=== PATIENT | female | born 1975 | race Caucasian/White ===

== ENCOUNTER 2019-12-02 12:35 | Inpatient (IN) | payer OTHER ==
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
--- NOTE | 2019-12-02 15:03 | HP ---
CIWA Score Nausea/Vomitin Muscle Tremors: 3 Anxiety: 1-Mildly Anxious Agitation: 1-Slight > Activity Paroxysmal Sweats: No Perspiration Orientation: 0-Oriented Tacttile Disturbances: 0-None Auditory Disturbances: 0-None Visual Disturbances: 2-Mild Sensitivity Headache: 0-None Present CIWA-Ar Total Score: 10 - Admission Criteria OASAS Guidelines: Admission for Medically Managed Detox: Requires at least one of the followin. CIWA greater than 12 2. Seizures within the past 24 hours 3. Delirium tremens within the past 24 hours 4. Hallucinations within the past 24 hours 5. Acute intervention needed for co occurring medical disorder 6. Acute intervention needed for co occurring psychiatric disorder 7. Severe withdrawal that cannot be handled at a lower level of care (continued vomiting, continued diarrhea, abnormal vital signs) requiring intravenous medication and/or fluids 8. Admitting History and Physical - Admission History of Present Illness: Patient presents to [facility] requesting for detox from alcohol PMH:HTN. Pt says he has PRN lasix, spironolactone. Neuropathy under investigation for ? herniated disc following cervical trauma PSH: Apendisectomy PSYCH: Depression, anxiety, bipolar on seroquel SOC/DOMICILED: [facility] LEGAL: None Substance Use & Tx History - Substance Use History Alcohol Substance amount: 1-2 pints of a mixer: [place] Iced tea Frequency of use: Daily Substance route: Oral Date of Last Use: 12/01/19 (First use age 24 y. ? seizure yesterday. No blackouts. 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: Peripheral Neuropathy (under investigation for suspected cervical disc) Hepatobiliary: Yes: Cirrhosis ...LMP: 11/20/19 (lasted 2 weeks with clots) ...: No Heme/Onc: Yes: Other (MGUS, being managed by construction trades contractor) Psych: Yes: Anxiety, Bipolar, Depression Additional Past Medical History: Patient is also being managed for MGUS and neuropathy be a 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 Patient complained of menorrhagia and has been advisd to [facility] primary care provider) Hematology: reports: Other (currently being managed for MGUS by construction trades contractor. Encouraged to continue follow-up) Patient History - Smoking Cessation Smoking history: Current every day smoker Have you smoked in the past 12 months: Yes Aproximately how many cigarettes per day: 10 Cigars Per Day: 12 Hx Chewing Tobacco Use: No Initiated information on smoking cessation: Yes 'Breaking Loose' booklet given: 12/02/19 Admission Physical Exam [facility] - Physical General Appearance: Yes: Within Normal Limits, No Apparent Distress, Nourished, Appropriately Dressed HEENTM: Yes: Within Normal Limits, EOMI, Hearing grossly Normal, Normocephalic, Normal Voice, JAME Respiratory: Yes: Within Normal Limits, Chest Non-Tender, Lungs Clear, Normal Breath Sounds, No Respiratory Distress, No Accessory Muscle Use Neck: Yes: Within Normal Limits, No masses,lesions,Nodules Breast: Yes: Breast Exam Deferred Cardiology: Yes: Within Normal Limits, Regular Rhythm, Regular Rate, S1, S2 Abdominal: Yes: Within Normal Limits, Normal Bowel Sounds, Non Tender, Flat, Soft Genitourinary: Yes: Other Back: Yes: Within Normal Limits, Normal Inspection Musculoskeletal: Yes: Within Normal Limits, full range of Motion Extremities: Yes: Normal Capillary Refill, Normal Inspection, Other (tenderness b/l legs) Neurological: Yes: Within Normal Limits, Fully Oriented, Alert Integumentary: Yes: Within Normal Limits, Normal Color - Diagnostic (1) Hypertension Current Visit: Yes Status: Acute (2) Numbness and tingling of both lower extremities Current Visit: Yes Status: Chronic (3) Numbness and tingling of both upper extremities Current Visit: Yes Status: Chronic (4) Depression Current Visit: Yes Status: Chronic (5) Anxiety Current Visit: Yes Status: Acute (6) Bipolar 1 disorder Current Visit: Yes Status: Chronic Cleared for Admission S - Detox or Rehab [facility] Level of Care: Medically Managed Screened but not Admitted - Documentation of Visit Screened but not Admitted: No Breathalyzer - Breathalyzer Breathalyzer: 0.050 Urine Drug Screen - Test Device Lot number: [id number] Expiration date: 01/09/21 - Control Is test valid?: Yes - Results Drug screen NEGATIVE: No Urine drug screen results: THC-Marijuana, BZO-Benzodiazepines Inpatient Rehab Admission - Rehab Decision to Admit Inpatient rehab admission?: No
[2019-12-02] MEDS ORDERED: ACETAMINOPHEN 325 MG TABLET (FP) PO PRN ×2 (15:35)
[2019-12-02] MEDS ORDERED: chlordiazePOXIDE HCL 25 MG CAPSULE PO PRN ×2 (15:35)
[2019-12-02] MEDS ORDERED: MAGNESIUM CITRATE 300 ML BOTTLE PO PRN (15:35)
[2019-12-02] MEDS ORDERED: BISMUTH SUBSALICYLATE 524 MG/30 ML UD PO PRN (15:35)
[2019-12-02] MEDS ORDERED: METHOCARBAMOL 500 MG TABLET PO PRN (15:35)
[2019-12-02] MEDS ORDERED: MAG HYDROX/AL HYDROX/SIMETH 30 ML UNIT-DOSE CUP PO PRN (15:35)
[2019-12-02] MEDS ORDERED: MAGNESIUM HYDROX 2400MG/30ML ORAL SUSPENSION 30 ML CUP PO PRN (15:35)
[2019-12-02] MEDS ORDERED: NICOTINE POLACRILEX 2 MG GUM BUC PRN (15:35)
[2019-12-02] MEDS ORDERED: MENTHOL/PHENOL 1 EACH UD MM PRN (15:35)
[2019-12-02] MEDS ORDERED: IBUPROFEN 400 MG TABLET (FP) PO PRN (15:35)
[2019-12-02 16:45] VITALS: BMI 26.4
[2019-12-02] MEDS ORDERED: chlordiazePOXIDE HCL 25 MG CAPSULE PO SCH (17:00)
[2019-12-02] MEDS: NICOTINE 14 MG/24 HOURS TOPICAL PATCH TD SCH (18:11)
[2019-12-02] MEDS: hydrOXYzine PAMOATE 25 MG CAPSULE (FP) PO SCH ×2 (18:11→22:21)
[2019-12-02] MEDS: PRENATAL VITAMINS W/ FOLIC ACID TABLET (FP) PO SCH (18:11)
[2019-12-02] MEDS: ONDANSETRON *ODT* 4 MG TABLET SL PRN (21:14)
[2019-12-02] MEDS ORDERED: MELATONIN 5 MG TABLETS PO SCH (22:00)
[2019-12-02] MEDS ORDERED: THIAMINE HCL 100 MG TABLET (FP) PO SCH (22:00)
[2019-12-02] MEDS: chlordiazePOXIDE HCL 25 MG CAPSULE PO SCH (22:20)
[2019-12-03] MEDS: chlordiazePOXIDE HCL 25 MG CAPSULE PO SCH ×2 (06:14→10:41)
[2019-12-03] MEDS: hydrOXYzine PAMOATE 25 MG CAPSULE (FP) PO SCH ×4 (06:15→18:52)
[2019-12-03 10:23] LABS: HEMATOCRIT 37.3 % (32.4-45.2); HEMOGLOBIN 12.4 GM/dL (10.7-15.3); MCH 37.1 pg (25.7-33.7); MCHC 33.2 g/dl (32.0-36.0); MEAN CELL VOLUME 111.6 fl (80-96); MEAN PLT VOLUME 11.2 fl (7.5-11.1); PLATELET COUNT 234 K/MM3 (134-434); RBC 3.34 M/mm3 (3.60-5.2); RDW 18.2 % (11.6-15.6); WHITE BLOOD COUNT 8.9 K/mm3 (4.0-10.0)
[2019-12-03 10:37] LABS: ALBUMIN 3.3 g/dl (3.4-5.0); BLOOD UREA NITROGEN 5.2 mg/dL (7-18); CALCIUM 8.9 mg/dL (8.5-10.1); CREATININE 0.8 mg/dL (0.55-1.3); POTASSIUM 3.9 mmol/L (3.5-5.1)
[2019-12-03 10:39] LABS: BILIRUBIN,TOTAL 1.3 mg/dL (0.2-1); TOT PROT 8.3 g/dl (6.4-8.2)
[2019-12-03] MEDS: PRENATAL VITAMINS W/ FOLIC ACID TABLET (FP) PO SCH (10:41)
[2019-12-03] MEDS: NICOTINE 14 MG/24 HOURS TOPICAL PATCH TD SCH (10:41)
--- NOTE | 2019-12-03 10:58 | PN ---
S CIWA - CIWA Score Nausea/Vomitin-Mild Nausea/No Vomiting Muscle Tremors: 2 Anxiety: 0-No Anxiety, at Ease Agitation: 0-Normal Activity Paroxysmal Sweats: 1-Minimal Palms Moist Orientation: 1-Uncertain about Date Tacttile Disturbances: 0-None Auditory Disturbances: 0-None Visual Disturbances: 1-Very Mild Sensitivity Headache: 0-None Present CIWA-Ar Total Score: 6 BHS Progress Note (SOAP) Subjective: Pt complains of slight nausea, tremor, sweats, light sensitivity Objective: 12/03/19 11:01 PE Gnl: WDWN, in bed MS: nl mentation Motor: moves limbs well Coordination: nl Laboratory Tests 12/03/19 12/03/19 08:15 08:15 WBC 8.9 RBC 3.34 L Hgb 12.4 Hct 37.3 MCV 111.6 H MCH 37.1 H MCHC 33.2 RDW 18.2 H Plt Count 234 MPV 11.2 H Sodium 142 Potassium 3.9 Chloride 107 Carbon Dioxide 26 Anion Gap 9 BUN 5.2 L Creatinine 0.8 Est GFR (CKD-EPI)AfAm 103.19 Est GFR (CKD-EPI)NonAf 89.04 Random Glucose 132 H Calcium 8.9 Total Bilirubin 1.3 H AST 114 H ALT 53 Alkaline Phosphatase 127 H Total Protein 8.3 H Albumin 3.3 L Home Medication List Medication Instructions Recorded Confirmed Type Buspirone HCl [Buspar -] 10 mg PO DAILY 12/02/19 12/02/19 History Gabapentin 300 mg PO BID 12/02/19 12/02/19 History Pregabalin [Lyrica] 100 mg PO DAILY 12/02/19 12/02/19 History Quetiapine Fumarate [Seroquel -] 50 mg PO HS 12/02/19 12/02/19 History traZODone HCL [Trazodone HCl] 100 mg PO HS 12/02/19 12/02/19 History Active Medications Generic Name Dose Route Start Last Admin Trade Name Freq PRN Reason Stop Dose Admin Acetaminophen 650 mg 12/02/19 15:35 Tylenol - PO Q6H PRN FEVER Al Hydroxide/Mg Hydroxide 30 ml 12/02/19 15:35 Mylanta Oral Suspension - PO Q6H PRN DYSPEPSIA Bismuth Subsalicylate 524 mg 12/02/19 15:35 Pepto-Bismol - PO Q1H PRN DIARRHEA Chlordiazepoxide HCl 50 mg 12/02/19 23:00 12/03/19 10:41 Librium - PO 12/03/19 23:01 50 mg [id number] MARLEEN Administration Chlordiazepoxide HCl 25 mg 12/04/19 05:00 Librium - PO 12/04/19 23:01 [id number] MARLEEN Chlordiazepoxide HCl 25 mg 12/02/19 15:35 12/02/19 18:11 Librium - PO 12/04/19 23:59 25 mg Q4H PRN Administration WITHDRAWAL(CONT SUBST) Chlordiazepoxide HCl 10 mg 12/05/19 05:00 Librium - PO 12/05/19 23:01 [id number] MARLEEN Chlordiazepoxide HCl 10 mg 12/06/19 05:00 Librium - PO 12/06/19 17:01 Q12H MARLEEN Chlordiazepoxide HCl 10 mg 12/05/19 00:00 Librium - PO 12/06/19 00:00 Q4H PRN WITHDRAWAL(CONT SUBST) Chlordiazepoxide HCl 10 mg 12/07/19 05:00 Librium - PO 12/07/19 05:01 ONCE@0500 ONE Eucalyptus/Menthol/Phenol/Sorbitol 1 each 12/02/19 15:35 Cepastat Lozenge - MM 12/08/19 15:35 Q4H PRN SORE THROAT Hydroxyzine Pamoate 25 mg 12/02/19 18:00 12/03/19 10:41 Vistaril - PO 12/08/19 15:35 25 mg Q4HWA MARLEEN Administration Ibuprofen 400 mg 12/02/19 15:35 12/02/19 20:45 Motrin - PO 400 mg Q6H PRN Administration PAIN LEVEL 1 - 3 Magnesium Citrate 300 ml 12/02/19 15:35 Citroma - PO Q48H PRN CONSTIPATION Magnesium Hydroxide 30 ml 12/02/19 15:35 Milk Of Magnesia - PO PRN PRN CONSTIPATION Melatonin 5 mg 12/02/19 22:00 12/02/19 22:21 Melatonin PO 5 mg HS MARLEEN Administration Methocarbamol 500 mg 12/02/19 15:35 12/02/19 20:45 Robaxin - PO 12/08/19 15:35 500 mg Q6H PRN Administration MUSCLE SPASMS Nicotine 14 mg 12/02/19 15:45 12/03/19 10:41 Nicoderm Patch - TD Not Given DAILY MARLEEN Nicotine Polacrilex 2 mg 12/02/19 15:35 Nicorette Gum - BUC Q2H PRN NICOTINE REPLACEMENT RX Ondansetron HCl 4 mg 12/02/19 15:45 12/02/19 21:14 Zofran Odt - SL 4 mg Q8H PRN Administration NAUSEA Multivit/Folic Acid/Iron 1 tab 12/02/19 16:45 12/03/19 10:41 Vitamins (Sjr) - PO 1 tab DAILY MARLEEN Administration Thiamine HCl 100 mg 12/02/19 22:00 12/02/19 22:21 Vitamin B1 - PO 100 mg HS MARLEEN Administration Vital Signs Temperature 97.8 F 12/03/19 08:55 Pulse Rate 86 12/03/19 08:55 Respiratory Rate 18 12/03/19 08:55 Blood Pressure 108/73 12/03/19 08:55 O2 Sat by Pulse Oximetry (%) 95 12/03/19 08:55 Assessment: 12/03/19 10:58 Patient presents to [facility] requesting for detox from alcohol PMH:HTN. Pt says he has PRN lasix, spironolactone. Neuropathy under investigation for ? herniated disc following cervical trauma PSH: Apendisectomy PSYCH: Depression, anxiety, bipolar on seroquel SOC/DOMICILED: [facility] LEGAL: None Substance Use & Tx History - Substance Use History Alcohol Substance amount: 1-2 pints of a mixer: [place] Iced tea Frequency of use: Daily Substance route: Oral Date of Last Use: 12/01/19 (First use age 24 y. ? seizure yesterday. No blackouts. 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 Alcohol use disorder 2. Nicotine dependence Plan: 1. Librium protocol, projected completion 12/05 2. COVID pending
--- NOTE | 2019-12-03 11:20 | EKG ---
Test Reason : Blood Pressure : / mmHG Vent. Rate : 083 BPM Atrial Rate : 083 BPM P-R Int : 130 ms QRS Dur : 072 ms QT Int : 386 ms P-R-T Axes : 074 029 053 degrees QTc Int : 453 ms NORMAL SINUS RHYTHM NORMAL ECG NO PREVIOUS ECGS AVAILABLE Confirmed by GREGOR MORENO MD ([id number]) on 12/03/2019 11:20:09 AM Referred By: Confirmed By:GREGOR MORENO MD
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
--- NOTE | 2019-12-03 13:54 | PN ---
Teaching Attending Note Name of Resident: Farooq Aldridge ATTENDING PHYSICIAN STATEMENT I saw and evaluated the patient. I reviewed the resident's note and discussed the case with the resident. I agree with the resident's findings and plan as documented. SUBJECTIVE: I agree with resident's subjective findings OBJECTIVE: I agree with resident's objective findings ASSESSMENT AND PLAN: I agree with resident's plans for detox.
[2019-12-03] MEDS: ONDANSETRON *ODT* 4 MG TABLET SL PRN (14:13)
[2019-12-03] MEDS ORDERED: chlordiazePOXIDE HCL 25 MG CAPSULE PO SCH (17:00)
[2019-12-03 17:08] VITALS: BP 116/82; PULSE 75; TEMP 97.3
--- NOTE | 2019-12-03 19:54 | DS ---
[facility] Detox Discharge Summary Admission Date: 12/02/19 Discharge Date: 12/03/19 - History Present History: Alcohol Dependence Additional Comments: Patient left before the provider could see/evaluate her. Pertinent Past History: History of HTN,Appendectomy, anxiety, depression, Bipolar, Alcohol and Nicotine use disorder. - Physical Exam Results Vital Signs: Vital Signs Temperature 97.3 F L 12/03/19 16:52 Pulse Rate 75 12/03/19 16:52 Respiratory Rate 18 12/03/19 16:52 Blood Pressure 116/82 12/03/19 16:52 O2 Sat by Pulse Oximetry (%) 97 12/03/19 14:06 Vital Signs 12/03/19 12/03/19 14:06 16:52 Temperature 97.1 F L 97.3 F L Pulse Rate 100 H 75 Respiratory 18 18 Rate Blood Pressure 123/90 116/82 O2 Sat by Pulse 95 Oximetry (%) Laboratory Last Values WBC 8.9 K/mm3 (4.0-10.0) 12/03/19 08:15 RBC 3.34 M/mm3 (3.60-5.2) L 12/03/19 08:15 Hgb 12.4 GM/dL (10.7-15.3) 12/03/19 08:15 Hct 37.3 % (32.4-45.2) 12/03/19 08:15 MCV 111.6 fl (80-96) H 12/03/19 08:15 MCH 37.1 pg (25.7-33.7) H 12/03/19 08:15 MCHC 33.2 g/dl (32.0-36.0) 12/03/19 08:15 RDW 18.2 % (11.6-15.6) H 12/03/19 08:15 Plt Count 234 K/MM3 (134-434) 12/03/19 08:15 MPV 11.2 fl (7.5-11.1) H 12/03/19 08:15 Sodium 142 mmol/L (136-145) 12/03/19 08:15 Potassium 3.9 mmol/L (3.5-5.1) 12/03/19 08:15 Chloride 107 mmol/L (98-107) 12/03/19 08:15 Carbon Dioxide 26 mmol/L (21-32) 12/03/19 08:15 Anion Gap 9 MMOL/L (8-16) 12/03/19 08:15 BUN 5.2 mg/dL (7-18) L 12/03/19 08:15 Creatinine 0.8 mg/dL (0.55-1.3) 12/03/19 08:15 Est GFR (CKD-EPI)AfAm 103.19 12/03/19 08:15 Est GFR (CKD-EPI)NonAf 89.04 12/03/19 08:15 Random Glucose 132 mg/dL (74-106) H 12/03/19 08:15 Calcium 8.9 mg/dL (8.5-10.1) 12/03/19 08:15 Total Bilirubin 1.3 mg/dL (0.2-1) H 12/03/19 08:15 AST 114 U/L (15-37) H 12/03/19 08:15 ALT 53 U/L (13-61) 12/03/19 08:15 Alkaline Phosphatase 127 U/L (45-117) H 12/03/19 08:15 Total Protein 8.3 g/dl (6.4-8.2) H 12/03/19 08:15 Albumin 3.3 g/dl (3.4-5.0) L 12/03/19 08:15 Syphilis Serology Non-reactive (NONREACTIVE) 12/03/19 08:20 COVID-19 (MICHAELA) Not detected (Not Detected) 12/02/19 19:00 Labs noted. Pertinent Admission Physical Exam Findings: Withdrawal symptoms - Medication Discharge Medications: Ambulatory Orders Buspirone HCl [Buspar -] 10 mg PO DAILY 12/02/19 Gabapentin 300 mg PO BID 12/02/19 Pregabalin [Lyrica] 100 mg PO DAILY 12/02/19 Quetiapine Fumarate [Seroquel -] 50 mg PO HS 12/02/19 traZODone HCL [Trazodone HCl] 100 mg PO HS 12/02/19 - Diagnosis (1) Anxiety Current Visit: Yes Status: Chronic (2) Hypertension Current Visit: Yes Status: Chronic (3) Alcohol use disorder Current Visit: Yes Status: Acute (4) Insomnia Current Visit: Yes Status: Chronic - AMA Did Patient Leave Against Medical Advice: Yes
[2019-12-03] MEDS ORDERED: busPIRone HCL 5 MG TABLET PO SCH (22:00)
[2019-12-03] MEDS ORDERED: QUEtiapine FUMARATE 50 MG TABLET PO SCH (22:00)
[2019-12-03] MEDS ORDERED: traZODone HCL 50 MG TABLET (FP) PO SCH (22:00)
[2019-12-04] MEDS ORDERED: chlordiazePOXIDE HCL 25 MG CAPSULE PO SCH ×3 (05:00)
[2019-12-05] MEDS ORDERED: chlordiazePOXIDE HCL 10 MG CAPSULE PO PRN ×3
[2019-12-05] MEDS ORDERED: chlordiazePOXIDE HCL 10 MG CAPSULE PO SCH ×3 (05:00)
[2019-12-06] MEDS ORDERED: chlordiazePOXIDE HCL 10 MG CAPSULE PO SCH ×3 (05:00)
[2019-12-07] MEDS ORDERED: chlordiazePOXIDE HCL 10 MG CAPSULE PO ONE ×3 (05:00)
== END 2019-12-03 19:10 | disposition left against medical advice (07) | DRG 770 ==
LOC: YASAS 12:35 → Y6N 15:14 → Y3N 15:28
PROVIDERS: ADMIT Allergy & Immunology; ATTEND Allergy & Immunology
PROC: HZ2ZZZZ Detoxification Services for Substance Abuse Treatment (ICD-10-PCS; principal; 2019-12-02)
DX: F10.230 Alcohol dependence with withdrawal, uncomplicated (principal); F17.210 Nicotine dependence, cigarettes, uncomplicated; F31.9 Bipolar disorder, unspecified; F40.8 Other phobic anxiety disorders; F19.24 Other psychoactive substance dependence with psychoactive substance-induced mood disorder; D47.2 Monoclonal gammopathy; I10 Essential (primary) hypertension; K74.60 Unspecified cirrhosis of liver; G62.9 Polyneuropathy, unspecified; G47.00 Insomnia, unspecified; R20.0 Anesthesia of skin; Z90.49 Acquired absence of other specified parts of digestive tract; Z56.0 Unemployment, unspecified
CPT/HCPCS: 36415; 80053; 85027; 86780; 93005; 93010; Q0162; U0003

== ENCOUNTER 2021-12-31 17:16 | Inpatient (IN) | payer OTHER ==
[2021-12-31 18:43] VITALS: BMI 25.0
[2021-12-31] MEDS ORDERED: METHOCARBAMOL 500 MG TABLET PO PRN (20:00)
[2021-12-31] MEDS ORDERED: IBUPROFEN 400 MG TABLET (FP) PO PRN (20:00)
[2021-12-31] MEDS ORDERED: ACETAMINOPHEN 325 MG TABLET (FP) PO PRN ×2 (20:00)
[2021-12-31] MEDS ORDERED: NICOTINE POLACRILEX 2 MG GUM BUC PRN (20:00)
[2021-12-31] MEDS ORDERED: LOPERAMIDE HCL 2 MG CAPSULE PO PRN (20:00)
[2021-12-31] MEDS ORDERED: DICYCLOMINE HCL 10 MG CAPSULE PO PRN (20:00)
[2021-12-31] MEDS ORDERED: BISMUTH SUBSALICYLATE 524 MG/30 ML PO PRN (20:00)
[2021-12-31] MEDS ORDERED: MAGNESIUM CITRATE 300 ML BOTTLE PO PRN (20:00)
[2021-12-31] MEDS ORDERED: MAGNESIUM HYDROX 2400MG/30ML ORAL SUSPENSION 30 ML CUP PO PRN (20:00)
[2021-12-31] MEDS ORDERED: BENZOCAINE/MENTHOL (CHLORASEPTIC ) LOZENGE MM PRN (20:00)
[2021-12-31] MEDS ORDERED: ONDANSETRON *ODT* 4 MG TABLET ONE (20:40)
[2021-12-31] MEDS: ONDANSETRON *ODT* 4 MG TABLET SL PRN (20:42)
[2021-12-31] MEDS: LORazepam 1 MG TABLET PO PRN (21:10)
[2021-12-31] MEDS: LORazepam 2 MG TABLET PO SCH ×2 (21:13→22:53)
[2021-12-31] MEDS: THIAMINE HCL 100 MG TABLET (FP) PO SCH (22:53)
[2021-12-31] MEDS: MELATONIN 5 MG TABLETS PO SCH (22:53)
[2022-01-01] MEDS: LORazepam 2 MG TABLET PO SCH ×4 (06:16→22:38)
[2022-01-01] MEDS: NICOTINE 14 MG/24 HOURS TOPICAL PATCH TD SCH (10:14)
[2022-01-01] MEDS: PRENATAL VITAMINS W/ FOLIC ACID TABLET (FP) PO SCH (10:14)
[2022-01-01 10:56] LABS: HEMOGLOBIN 12.3 GM/dL (10.7-15.3); MCH 32.3 pg (25.7-33.7); MCHC 32.5 g/dl (32.0-36.0); MEAN CELL VOLUME 99.5 fl (80-96); PLATELET COUNT 264 10^3/uL (134-434); RBC 3.82 M/mm3 (3.60-5.2); RDW 19.4 % (11.6-15.6); WHITE BLOOD COUNT 6.4 K/mm3 (4.0-10.0)
[2022-01-01 11:10] LABS: ALBUMIN 3.1 g/dl (3.4-5.0); BLOOD UREA NITROGEN 6.3 mg/dL (7-18); CALCIUM 8.8 mg/dL (8.5-10.1)
[2022-01-01 11:13] LABS: CREATININE 0.7 mg/dL (0.55-1.3)
[2022-01-01 11:15] LABS: BILIRUBIN,TOTAL 0.9 mg/dL (0.2-1); TOT PROT 6.6 g/dl (6.4-8.2)
[2022-01-01] MEDS: LORazepam 1 MG TABLET PO PRN (13:10)
[2022-01-01] MEDS: ONDANSETRON *ODT* 4 MG TABLET SL PRN (13:10)
[2022-01-01] MEDS: GABAPENTIN 300 MG CAPSULE PO SCH ×2 (13:34→22:37)
[2022-01-01] MEDS: MAG HYDROX/AL HYDROX/SIMETH 30 ML UNIT-DOSE CUP PO PRN (17:55)
[2022-01-01] MEDS: IBUPROFEN 600 MG TABLET (FP) PO PRN (17:55)
[2022-01-01] MEDS: FAMOTIDINE 20 MG TABLET PO SCH (19:03)
[2022-01-01] MEDS: MELATONIN 5 MG TABLETS PO SCH (22:38)
[2022-01-01] MEDS: THIAMINE HCL 100 MG TABLET (FP) PO SCH (22:38)
[2022-01-02] MEDS: LORazepam 1 MG TABLET PO SCH ×3 (06:23→18:02)
[2022-01-02] MEDS: GABAPENTIN 300 MG CAPSULE PO SCH ×3 (06:24→22:10)
[2022-01-02] MEDS: PRENATAL VITAMINS W/ FOLIC ACID TABLET (FP) PO SCH (10:22)
[2022-01-02] MEDS: FAMOTIDINE 20 MG TABLET PO SCH (10:22)
[2022-01-02] MEDS: NICOTINE 14 MG/24 HOURS TOPICAL PATCH TD SCH (10:22)
[2022-01-02] MEDS: LORazepam 1 MG TABLET PO PRN (14:06)
[2022-01-02] MEDS: IBUPROFEN 600 MG TABLET (FP) PO PRN (14:08)
[2022-01-02] MEDS: MAG HYDROX/AL HYDROX/SIMETH 30 ML UNIT-DOSE CUP PO PRN (18:20)
[2022-01-02] MEDS: MELATONIN 5 MG TABLETS PO SCH (22:10)
[2022-01-02] MEDS: THIAMINE HCL 100 MG TABLET (FP) PO SCH (22:12)
[2022-01-03] MEDS ORDERED: LORazepam 0.5 MG TABLET PO PRN
[2022-01-03] MEDS: LORazepam 1 MG TABLET PO SCH (00:18)
[2022-01-03] MEDS: IBUPROFEN 600 MG TABLET (FP) PO PRN ×2 (05:56→17:31)
[2022-01-03] MEDS: GABAPENTIN 300 MG CAPSULE PO SCH ×2 (05:57→14:03)
[2022-01-03] MEDS: LORazepam 0.5 MG TABLET PO SCH ×3 (05:57→17:31)
[2022-01-03] MEDS: NICOTINE 14 MG/24 HOURS TOPICAL PATCH TD SCH (10:18)
[2022-01-03] MEDS: PRENATAL VITAMINS W/ FOLIC ACID TABLET (FP) PO SCH (10:18)
[2022-01-03] MEDS: FAMOTIDINE 20 MG TABLET PO SCH (10:18)
[2022-01-03 13:10] VITALS: RESP 18
[2022-01-03 18:08] VITALS: BP 144/85; PULSE 71; TEMP 97.5
[2022-01-04] MEDS ORDERED: LORazepam 0.5 MG TABLET PO ONE (05:00)
== END 2022-01-03 19:30 | disposition home or self-care (01) | DRG 775 ==
LOC: YASAS 17:16 → Y3N 20:17
PROVIDERS: ADMIT Allergy & Immunology; ATTEND Surgery
PROC: HZ2ZZZZ Detoxification Services for Substance Abuse Treatment (ICD-10-PCS; principal; 2021-12-31)
DX: F10.230 Alcohol dependence with withdrawal, uncomplicated (principal); F13.20 Sedative, hypnotic or anxiolytic dependence, uncomplicated; F12.20 Cannabis dependence, uncomplicated; F17.210 Nicotine dependence, cigarettes, uncomplicated; F19.24 Other psychoactive substance dependence with psychoactive substance-induced mood disorder; F31.9 Bipolar disorder, unspecified; F41.9 Anxiety disorder, unspecified; G62.9 Polyneuropathy, unspecified; I10 Essential (primary) hypertension; K21.9 Gastro-esophageal reflux disease without esophagitis; K74.60 Unspecified cirrhosis of liver; R73.03 Prediabetes
CPT/HCPCS: 36415; 80053; 81025; 82962; 85027; 86780; 93005; 93010; C9803-CS; Q0162; U0003; U0005

== ENCOUNTER 2022-05-16 11:04 | Inpatient (IN) | payer OTHER ==
[2022-05-16 13:37] VITALS: BMI 24.5
[2022-05-16] MEDS ORDERED: NICOTINE POLACRILEX 4 MG GUM BUC PRN (14:06)
[2022-05-16] MEDS ORDERED: DICYCLOMINE HCL 10 MG CAPSULE PO PRN (14:06)
[2022-05-16] MEDS ORDERED: IBUPROFEN 400 MG TABLET (FP) PO PRN (14:06)
[2022-05-16] MEDS ORDERED: LOPERAMIDE HCL 2 MG CAPSULE PO PRN (14:06)
[2022-05-16] MEDS ORDERED: MAG HYDROX/AL HYDROX/SIMETH 30 ML UNIT-DOSE CUP PO PRN (14:06)
[2022-05-16] MEDS ORDERED: BENZOCAINE/MENTHOL (CHLORASEPTIC ) LOZENGE MM PRN (14:06)
[2022-05-16] MEDS ORDERED: ONDANSETRON *ODT* 4 MG TABLET SL ONE (14:06)
[2022-05-16] MEDS ORDERED: MAGNESIUM HYDROX 2400MG/30ML ORAL SUSPENSION 30 ML CUP PO PRN (14:06)
[2022-05-16] MEDS ORDERED: POLYETHYLENE GLYCOL (HEALTHYLAX) 3350 17 GM PACKET PO PRN (14:06)
[2022-05-16] MEDS ORDERED: BISMUTH SUBSALICYLATE 262 MG/15 ML BTL PO PRN (14:06)
[2022-05-16] MEDS ORDERED: METHOCARBAMOL 500 MG TABLET PO PRN (14:06)
[2022-05-16] MEDS ORDERED: SIMETHICONE 80 MG TAB.CHEW (FP) PO PRN (14:49)
[2022-05-16] MEDS ORDERED: ONDANSETRON *ODT* 4 MG TABLET ONE (15:36)
[2022-05-16] MEDS ORDERED: LORazepam 1 MG TABLET ONE (15:37)
[2022-05-16] MEDS: LORazepam 1 MG TABLET PO PRN (15:40)
[2022-05-16 17:29] LABS: HEMATOCRIT 38.5 % (32.4-45.2); HEMOGLOBIN 12.9 GM/dL (10.7-15.3); MCH 34.5 pg (25.7-33.7); MCHC 33.5 g/dl (32.0-36.0); MEAN PLT VOLUME 8.9 fl (7.5-11.1); PLATELET COUNT 263 10^3/uL (134-434); RBC 3.74 M/mm3 (3.60-5.2); RDW 20.3 % (11.6-15.6)
[2022-05-16] MEDS: NICOTINE 14 MG/24 HOURS TOPICAL PATCH TD SCH (17:31)
[2022-05-16] MEDS: LORazepam 2 MG TABLET PO SCH ×2 (17:31→22:19)
[2022-05-16] MEDS: IBUPROFEN 400 MG TABLET (FP) PO PRN (17:35)
[2022-05-16 17:39] LABS: CALCIUM 8.9 mg/dL (8.5-10.1)
[2022-05-16 17:40] LABS: ALBUMIN 3.5 g/dl (3.4-5.0); BLOOD UREA NITROGEN 5.8 mg/dL (7-18)
[2022-05-16 17:43] LABS: CREATININE 0.7 mg/dL (0.55-1.3)
[2022-05-16 17:45] LABS: BILIRUBIN,TOTAL 0.4 mg/dL (0.2-1); TOT PROT 7.6 g/dl (6.4-8.2)
[2022-05-16] MEDS: ATORVASTATIN CA 10 MG TABLET (FP) PO SCH (22:17)
[2022-05-16] MEDS: THIAMINE HCL 100 MG TABLET (FP) PO SCH (22:17)
[2022-05-16] MEDS: MELATONIN 5 MG TABLETS PO SCH (22:17)
[2022-05-16] MEDS: METHYL SALICYLATE/MENTHOL OINT 30 GM TUBE TP SCH (22:18)
[2022-05-16] MEDS: GABAPENTIN 300 MG CAPSULE PO SCH (22:18)
[2022-05-17] MEDS: LORazepam 2 MG TABLET PO SCH ×4 (05:50→22:06)
[2022-05-17] MEDS: GABAPENTIN 300 MG CAPSULE PO SCH ×3 (05:50→22:06)
[2022-05-17] MEDS: metFORMIN HCL 500 MG TABLET (FP) PO SCH (06:42)
[2022-05-17] MEDS: ASPIRIN COATED 81 MG TABLET.EC PO SCH (10:03)
[2022-05-17] MEDS: PANTOPRAZOLE 40 MG TABLET PO SCH (10:03)
[2022-05-17] MEDS: LIDOCAINE 5% TOPICAL PATCH TP SCH (10:03)
[2022-05-17] MEDS: NICOTINE 14 MG/24 HOURS TOPICAL PATCH TD SCH (10:04)
[2022-05-17] MEDS: PRENATAL VITAMINS W/ FOLIC ACID TABLET (FP) PO SCH (10:04)
[2022-05-17] MEDS: SPIRONOLACTONE 25 MG TABLET PO SCH (10:06)
[2022-05-17] MEDS: METHYL SALICYLATE/MENTHOL OINT 30 GM TUBE TP SCH ×2 (10:07→22:07)
[2022-05-17] MEDS: FUROSEMIDE 20 MG TABLET (FP) PO SCH (10:30)
[2022-05-17] MEDS: LACTULOSE 20 GM/30 ML UDC (FOR ORAL USE ONLY) PO SCH ×3 (13:50→22:07)
[2022-05-17] MEDS: hydrOXYzine PAMOATE 25 MG CAPSULE (FP) PO PRN (13:51)
[2022-05-17] MEDS: IBUPROFEN 400 MG TABLET (FP) PO PRN (15:31)
[2022-05-17] MEDS: MELATONIN 5 MG TABLETS PO SCH (22:06)
[2022-05-17] MEDS: THIAMINE HCL 100 MG TABLET (FP) PO SCH (22:06)
[2022-05-17] MEDS: QUEtiapine FUMARATE 100 MG TABLET (FP) PO SCH (22:06)
[2022-05-17] MEDS: ATORVASTATIN CA 10 MG TABLET (FP) PO SCH (22:06)
[2022-05-17] MEDS: LIDOCAINE PATCH REMOVAL MC SCH (22:07)
[2022-05-18] MEDS: LORazepam 1 MG TABLET PO SCH ×4 (05:59→22:13)
[2022-05-18] MEDS: GABAPENTIN 300 MG CAPSULE PO SCH ×3 (06:00→22:12)
[2022-05-18] MEDS: metFORMIN HCL 500 MG TABLET (FP) PO SCH (06:02)
[2022-05-18] MEDS: LIDOCAINE 5% TOPICAL PATCH TP SCH (10:20)
[2022-05-18] MEDS: SPIRONOLACTONE 25 MG TABLET PO SCH (10:21)
[2022-05-18] MEDS: PANTOPRAZOLE 40 MG TABLET PO SCH (10:21)
[2022-05-18] MEDS: FUROSEMIDE 20 MG TABLET (FP) PO SCH (10:21)
[2022-05-18] MEDS: ASPIRIN COATED 81 MG TABLET.EC PO SCH (10:21)
[2022-05-18] MEDS: PRENATAL VITAMINS W/ FOLIC ACID TABLET (FP) PO SCH (10:22)
[2022-05-18] MEDS: METHYL SALICYLATE/MENTHOL OINT 30 GM TUBE TP SCH ×2 (10:22→22:11)
[2022-05-18] MEDS: NICOTINE 14 MG/24 HOURS TOPICAL PATCH TD SCH (10:22)
[2022-05-18] MEDS: LACTULOSE 20 GM/30 ML UDC (FOR ORAL USE ONLY) PO SCH ×4 (10:23→22:11)
[2022-05-18] MEDS: IBUPROFEN 400 MG TABLET (FP) PO PRN (11:13)
[2022-05-18] MEDS: LORazepam 1 MG TABLET PO PRN (14:07)
[2022-05-18] MEDS ORDERED: POTASSIUM CHLORIDE ORAL LIQUID 20 MEQ/15 ML PO ONE (15:52)
[2022-05-18] MEDS: hydrOXYzine PAMOATE 25 MG CAPSULE (FP) PO PRN (17:50)
[2022-05-18] MEDS: LIDOCAINE PATCH REMOVAL MC SCH (22:12)
[2022-05-18] MEDS: MELATONIN 5 MG TABLETS PO SCH (22:12)
[2022-05-18] MEDS: ATORVASTATIN CA 10 MG TABLET (FP) PO SCH (22:12)
[2022-05-18] MEDS: QUEtiapine FUMARATE 100 MG TABLET (FP) PO SCH (22:13)
[2022-05-18] MEDS: THIAMINE HCL 100 MG TABLET (FP) PO SCH (22:13)
[2022-05-19] MEDS ORDERED: LORazepam 0.5 MG TABLET PO PRN
[2022-05-19] MEDS: LORazepam 0.5 MG TABLET PO SCH ×2 (06:56→10:32)
[2022-05-19] MEDS: metFORMIN HCL 500 MG TABLET (FP) PO SCH (06:56)
[2022-05-19] MEDS: GABAPENTIN 300 MG CAPSULE PO SCH (06:56)
[2022-05-19 07:28] VITALS: RESP 16
[2022-05-19 09:16] VITALS: BP 127/89; PULSE 100; TEMP 97.7
[2022-05-19] MEDS: SPIRONOLACTONE 25 MG TABLET PO SCH (10:31)
[2022-05-19] MEDS: PRENATAL VITAMINS W/ FOLIC ACID TABLET (FP) PO SCH (10:31)
[2022-05-19] MEDS: hydrOXYzine PAMOATE 25 MG CAPSULE (FP) PO PRN (10:31)
[2022-05-19] MEDS: LACTULOSE 20 GM/30 ML UDC (FOR ORAL USE ONLY) PO SCH (10:31)
[2022-05-19] MEDS: LIDOCAINE 5% TOPICAL PATCH TP SCH (10:31)
[2022-05-19] MEDS: FUROSEMIDE 20 MG TABLET (FP) PO SCH (10:32)
[2022-05-19] MEDS: PANTOPRAZOLE 40 MG TABLET PO SCH (10:32)
[2022-05-19] MEDS: ASPIRIN COATED 81 MG TABLET.EC PO SCH (10:32)
[2022-05-19] MEDS: NICOTINE 14 MG/24 HOURS TOPICAL PATCH TD SCH (10:36)
[2022-05-19] MEDS: METHYL SALICYLATE/MENTHOL OINT 30 GM TUBE TP SCH (11:08)
[2022-05-20] MEDS ORDERED: LORazepam 0.5 MG TABLET PO ONE (05:00)
== END 2022-05-19 12:18 | disposition home or self-care (01) | DRG 775 ==
LOC: YASAS 11:04 → Y3N 15:50
PROVIDERS: ADMIT Allergy & Immunology; ATTEND Surgery
PROC: HZ2ZZZZ Detoxification Services for Substance Abuse Treatment (ICD-10-PCS; principal; 2022-05-16)
DX: F10.230 Alcohol dependence with withdrawal, uncomplicated (principal); F12.20 Cannabis dependence, uncomplicated; F17.210 Nicotine dependence, cigarettes, uncomplicated; F31.9 Bipolar disorder, unspecified; F41.9 Anxiety disorder, unspecified; D47.2 Monoclonal gammopathy; G60.9 Hereditary and idiopathic neuropathy, unspecified; E78.5 Hyperlipidemia, unspecified; E87.6 Hypokalemia; I10 Essential (primary) hypertension; K70.30 Alcoholic cirrhosis of liver without ascites; K21.9 Gastro-esophageal reflux disease without esophagitis; R79.89 Other specified abnormal findings of blood chemistry; R73.03 Prediabetes; Z86.59 Personal history of other mental and behavioral disorders
CPT/HCPCS: 36415; 80053; 82140; 82962; 84132; 85027; 86780; C9803-CS; Q0162; U0003; U0005

== ENCOUNTER 2022-06-03 11:04 | Inpatient (IN) | payer OTHER ==
[2022-06-03 12:06] VITALS: BMI 24.0
[2022-06-03] MEDS ORDERED: LORazepam 1 MG TABLET PO PRN (12:49)
[2022-06-03] MEDS ORDERED: NICOTINE 10 MG CARTRIDGE (INHALER) IH PRN (12:49)
[2022-06-03] MEDS ORDERED: BENZOCAINE/MENTHOL (CHLORASEPTIC ) LOZENGE MM PRN (12:49)
[2022-06-03] MEDS ORDERED: POLYETHYLENE GLYCOL (HEALTHYLAX) 3350 17 GM PACKET PO PRN (12:49)
[2022-06-03] MEDS ORDERED: MAGNESIUM HYDROX 2400MG/30ML ORAL SUSPENSION 30 ML CUP PO PRN (12:49)
[2022-06-03] MEDS ORDERED: IBUPROFEN 600 MG TABLET (FP) PO PRN (12:49)
[2022-06-03] MEDS ORDERED: LOPERAMIDE HCL 2 MG CAPSULE PO PRN (12:49)
[2022-06-03] MEDS ORDERED: BISMUTH SUBSALICYLATE 524 MG/30 ML PO PRN (12:49)
[2022-06-03] MEDS ORDERED: IBUPROFEN 400 MG TABLET (FP) PO PRN (12:49)
[2022-06-03] MEDS ORDERED: ACETAMINOPHEN 325 MG TABLET (FP) PO PRN ×2 (12:49)
[2022-06-03] MEDS ORDERED: MAG HYDROX/AL HYDROX/SIMETH 30 ML UNIT-DOSE CUP PO PRN (12:49)
[2022-06-03] MEDS ORDERED: NALOXONE HCL (KLOXXADO) 8 MG SPRAY NS PRN (12:49)
[2022-06-03] MEDS ORDERED: DICYCLOMINE HCL 10 MG CAPSULE PO PRN (12:49)
[2022-06-03] MEDS ORDERED: LORazepam 2 MG TABLET ONE (13:09)
[2022-06-03] MEDS ORDERED: ONDANSETRON *ODT* 4 MG TABLET ONE (13:09)
[2022-06-03] MEDS: ONDANSETRON *ODT* 4 MG TABLET SL PRN (13:14)
[2022-06-03] MEDS ORDERED: LORazepam 2 MG TABLET PO ONE (13:15)
[2022-06-03] MEDS: ASPIRIN COATED 81 MG TABLET.EC PO SCH (14:20)
[2022-06-03] MEDS: SPIRONOLACTONE 25 MG TABLET PO SCH (14:21)
[2022-06-03] MEDS: PANTOPRAZOLE 40 MG TABLET PO SCH (14:21)
[2022-06-03] MEDS: PRENATAL VITAMINS W/ FOLIC ACID TABLET (FP) PO SCH (14:21)
[2022-06-03] MEDS: GABAPENTIN 300 MG CAPSULE PO SCH ×2 (14:21→22:12)
[2022-06-03] MEDS: METHOCARBAMOL 500 MG TABLET PO PRN ×2 (14:29→20:31)
[2022-06-03 15:51] LABS: ALBUMIN 3.7 g/dl (3.4-5.0); BLOOD UREA NITROGEN 4.4 mg/dL (7-18); CALCIUM 9.5 mg/dL (8.5-10.1)
[2022-06-03 15:54] LABS: CREATININE 0.7 mg/dL (0.55-1.3)
[2022-06-03 15:56] LABS: BILIRUBIN,TOTAL 0.9 mg/dL (0.2-1)
[2022-06-03 16:16] LABS: HEMATOCRIT 39.4 % (32.4-45.2); HEMOGLOBIN 13.3 GM/dL (10.7-15.3); MCH 35.2 pg (25.7-33.7); MCHC 33.9 g/dl (32.0-36.0); MEAN CELL VOLUME 104.1 fl (80-96); MEAN PLT VOLUME 9.2 fl (7.5-11.1); PLATELET COUNT 312 10^3/uL (134-434); RBC 3.78 M/mm3 (3.60-5.2); RDW 18.8 % (11.6-15.6); WHITE BLOOD COUNT 10.4 K/mm3 (4.0-10.0)
[2022-06-03] MEDS: LORazepam 2 MG TABLET PO SCH ×2 (17:44→22:12)
[2022-06-03] MEDS: hydrOXYzine PAMOATE 25 MG CAPSULE (FP) PO PRN (17:45)
[2022-06-03] MEDS ORDERED: MELATONIN 5 MG TABLETS PO SCH (22:00)
[2022-06-03] MEDS ORDERED: SUVOREXANT 10 MG TABLET PO PRN (22:00)
[2022-06-03] MEDS: THIAMINE HCL 100 MG TABLET (FP) PO SCH (22:12)
[2022-06-03] MEDS: QUEtiapine FUMARATE 200 MG TABLET PO SCH (22:12)
[2022-06-03] MEDS: ATORVASTATIN CA 10 MG TABLET (FP) PO SCH (22:12)
[2022-06-04] MEDS: GABAPENTIN 300 MG CAPSULE PO SCH ×3 (05:19→22:01)
[2022-06-04] MEDS: LORazepam 2 MG TABLET PO SCH ×4 (05:19→22:02)
[2022-06-04] MEDS: FUROSEMIDE 20 MG TABLET (FP) PO SCH (10:05)
[2022-06-04] MEDS: FAMOTIDINE 20 MG TABLET PO SCH ×2 (10:05→22:00)
[2022-06-04] MEDS: SPIRONOLACTONE 25 MG TABLET PO SCH (10:05)
[2022-06-04] MEDS: PRENATAL VITAMINS W/ FOLIC ACID TABLET (FP) PO SCH (10:05)
[2022-06-04] MEDS: ASPIRIN COATED 81 MG TABLET.EC PO SCH (10:05)
[2022-06-04] MEDS: LACTULOSE 20 GM/30 ML UDC (FOR ORAL USE ONLY) PO SCH ×4 (10:05→22:04)
[2022-06-04] MEDS: PANTOPRAZOLE 40 MG TABLET PO SCH (10:05)
[2022-06-04] MEDS: ONDANSETRON *ODT* 4 MG TABLET SL PRN (10:11)
[2022-06-04] MEDS: hydrOXYzine PAMOATE 25 MG CAPSULE (FP) PO PRN (12:49)
[2022-06-04] MEDS: hydrOXYzine PAMOATE 50 MG CAPSULE (FP) PO PRN ×2 (14:52→20:01)
[2022-06-04] MEDS: METHOCARBAMOL 500 MG TABLET PO PRN (17:34)
[2022-06-04] MEDS: ATORVASTATIN CA 10 MG TABLET (FP) PO SCH (22:00)
[2022-06-04] MEDS: QUEtiapine FUMARATE 200 MG TABLET PO SCH (22:01)
[2022-06-04] MEDS: THIAMINE HCL 100 MG TABLET (FP) PO SCH (22:01)
[2022-06-05] MEDS: GABAPENTIN 300 MG CAPSULE PO SCH ×3 (05:19→22:08)
[2022-06-05] MEDS: LORazepam 1 MG TABLET PO SCH ×4 (05:21→22:09)
[2022-06-05] MEDS: FAMOTIDINE 20 MG TABLET PO SCH ×2 (09:26→22:09)
[2022-06-05] MEDS: PRENATAL VITAMINS W/ FOLIC ACID TABLET (FP) PO SCH (09:27)
[2022-06-05] MEDS: LACTULOSE 20 GM/30 ML UDC (FOR ORAL USE ONLY) PO SCH ×4 (09:27→22:10)
[2022-06-05] MEDS: FUROSEMIDE 20 MG TABLET (FP) PO SCH (09:27)
[2022-06-05] MEDS: ASPIRIN COATED 81 MG TABLET.EC PO SCH (09:27)
[2022-06-05] MEDS: SPIRONOLACTONE 25 MG TABLET PO SCH (09:27)
[2022-06-05] MEDS: PANTOPRAZOLE 40 MG TABLET PO SCH (09:27)
[2022-06-05] MEDS: METHOCARBAMOL 500 MG TABLET PO PRN (09:28)
[2022-06-05] MEDS: hydrOXYzine PAMOATE 50 MG CAPSULE (FP) PO PRN ×3 (09:28→19:06)
[2022-06-05] MEDS: BACITRACIN 0.9 GM PACKET TP SCH (19:05)
[2022-06-05] MEDS: THIAMINE HCL 100 MG TABLET (FP) PO SCH (22:08)
[2022-06-05] MEDS: QUEtiapine FUMARATE 200 MG TABLET PO SCH (22:09)
[2022-06-05] MEDS: ATORVASTATIN CA 10 MG TABLET (FP) PO SCH (22:09)
[2022-06-06] MEDS: GABAPENTIN 300 MG CAPSULE PO SCH ×3 (05:46→22:08)
[2022-06-06] MEDS: LORazepam 0.5 MG TABLET PO SCH ×4 (05:46→22:10)
[2022-06-06] MEDS: METHOCARBAMOL 500 MG TABLET PO PRN ×3 (05:51→23:14)
[2022-06-06] MEDS ORDERED: metFORMIN HCL 500 MG TABLET (FP) PO SCH (07:00)
[2022-06-06] MEDS: hydrOXYzine PAMOATE 50 MG CAPSULE (FP) PO PRN ×4 (07:09→23:14)
[2022-06-06] MEDS: BACITRACIN 0.9 GM PACKET TP SCH (09:34)
[2022-06-06] MEDS: LACTULOSE 20 GM/30 ML UDC (FOR ORAL USE ONLY) PO SCH ×4 (09:34→22:11)
[2022-06-06] MEDS: LORazepam 0.5 MG TABLET PO PRN ×2 (09:34→14:25)
[2022-06-06] MEDS: PANTOPRAZOLE 40 MG TABLET PO SCH (09:34)
[2022-06-06] MEDS: FAMOTIDINE 20 MG TABLET PO SCH (09:34)
[2022-06-06] MEDS: ASPIRIN COATED 81 MG TABLET.EC PO SCH (09:34)
[2022-06-06] MEDS: FUROSEMIDE 20 MG TABLET (FP) PO SCH (09:35)
[2022-06-06] MEDS: SPIRONOLACTONE 25 MG TABLET PO SCH (09:35)
[2022-06-06] MEDS: PRENATAL VITAMINS W/ FOLIC ACID TABLET (FP) PO SCH (09:35)
[2022-06-06 21:26] VITALS: TEMP 97.3
[2022-06-06] MEDS ORDERED: SUVOREXANT 10 MG TABLET PO PRN (22:00)
[2022-06-06] MEDS: QUEtiapine FUMARATE 200 MG TABLET PO SCH (22:08)
[2022-06-06] MEDS: THIAMINE HCL 100 MG TABLET (FP) PO SCH (22:08)
[2022-06-06] MEDS: ATORVASTATIN CA 10 MG TABLET (FP) PO SCH (22:08)
[2022-06-07] MEDS ORDERED: LORazepam 0.5 MG TABLET PO ONE (05:00)
[2022-06-07] MEDS: GABAPENTIN 300 MG CAPSULE PO SCH (05:21)
[2022-06-07 06:48] VITALS: BP 95/65; PULSE 102; RESP 18
[2022-06-07] MEDS ORDERED: metFORMIN HCL 500 MG TABLET (FP) PO SCH (07:00)
[2022-06-07] MEDS: hydrOXYzine PAMOATE 50 MG CAPSULE (FP) PO PRN (07:08)
[2022-06-07] MEDS: METHOCARBAMOL 500 MG TABLET PO PRN (08:42)
== END 2022-06-07 08:46 | disposition home or self-care (01) | DRG 775 ==
LOC: YASAS 11:04 → Y6N 13:16
PROVIDERS: ADMIT Allergy & Immunology; ATTEND Family Medicine
PROC: HZ2ZZZZ Detoxification Services for Substance Abuse Treatment (ICD-10-PCS; principal; 2022-06-03)
DX: F10.230 Alcohol dependence with withdrawal, uncomplicated (principal); F12.20 Cannabis dependence, uncomplicated; F17.210 Nicotine dependence, cigarettes, uncomplicated; F31.9 Bipolar disorder, unspecified; F19.24 Other psychoactive substance dependence with psychoactive substance-induced mood disorder; F10.280 Alcohol dependence with alcohol-induced anxiety disorder; F10.282 Alcohol dependence with alcohol-induced sleep disorder; F41.9 Anxiety disorder, unspecified; D47.2 Monoclonal gammopathy; G60.9 Hereditary and idiopathic neuropathy, unspecified; E78.5 Hyperlipidemia, unspecified; K21.9 Gastro-esophageal reflux disease without esophagitis; R79.89 Other specified abnormal findings of blood chemistry; R73.9 Hyperglycemia, unspecified; R20.0 Anesthesia of skin; Z99.89 Dependence on other enabling machines and devices
CPT/HCPCS: 36415; 80053; 81025; 82140; 82962; 85027; 86780; C9803-CS; Q0162; U0003; U0005

== ENCOUNTER 2022-06-24 13:07 | Inpatient (IN) | payer OTHER ==
[2022-06-24 14:45] VITALS: BMI 24.3
[2022-06-24] MEDS ORDERED: P-EPHED 60MG/TRIPROLIDI 2.5MG TABLET PO PRN (16:42)
[2022-06-24] MEDS ORDERED: LOPERAMIDE HCL 2 MG CAPSULE PO PRN (16:42)
[2022-06-24] MEDS ORDERED: POLYETHYLENE GLYCOL (HEALTHYLAX) 3350 17 GM PACKET PO PRN (16:42)
[2022-06-24] MEDS ORDERED: BISMUTH SUBSALICYLATE 524 MG/30 ML PO PRN (16:42)
[2022-06-24] MEDS ORDERED: IBUPROFEN 600 MG TABLET (FP) PO PRN (16:42)
[2022-06-24] MEDS ORDERED: BENZOCAINE/MENTHOL (CHLORASEPTIC ) LOZENGE MM PRN (16:42)
[2022-06-24] MEDS ORDERED: guaiFENesin 200 MG/10 ML 10 ML UNIT-DOSE CUPS PO PRN (16:42)
[2022-06-24] MEDS ORDERED: MAGNESIUM HYDROX 2400MG/30ML ORAL SUSPENSION 30 ML CUP PO PRN (16:42)
[2022-06-24] MEDS ORDERED: ONDANSETRON *ODT* 4 MG TABLET SL PRN (16:42)
[2022-06-24] MEDS ORDERED: ACETAMINOPHEN 325 MG TABLET (FP) PO PRN ×2 (16:42)
[2022-06-24] MEDS ORDERED: DICYCLOMINE HCL 10 MG CAPSULE PO PRN (16:42)
[2022-06-24] MEDS ORDERED: IBUPROFEN 400 MG TABLET (FP) PO PRN (16:42)
[2022-06-24] MEDS ORDERED: diazePAM 5 MG TABLET ONE (17:18)
[2022-06-24] MEDS: diazePAM 5 MG TABLET PO SCH ×2 (17:22→22:40)
[2022-06-24] MEDS: MELATONIN 5 MG TABLETS PO PRN (22:40)
[2022-06-24] MEDS: THIAMINE HCL 100 MG TABLET (FP) PO SCH (22:40)
[2022-06-24] MEDS: hydrOXYzine PAMOATE 25 MG CAPSULE (FP) PO PRN (23:10)
[2022-06-24] MEDS: GABAPENTIN 300 MG CAPSULE PO SCH (23:10)
[2022-06-25] MEDS: diazePAM 5 MG TABLET PO SCH ×4 (06:02→22:59)
[2022-06-25] MEDS: GABAPENTIN 300 MG CAPSULE PO SCH ×3 (06:02→22:57)
[2022-06-25] MEDS: metFORMIN HCL 500 MG TABLET (FP) PO SCH (06:03)
[2022-06-25] MEDS: hydrOXYzine PAMOATE 25 MG CAPSULE (FP) PO PRN ×2 (06:17→16:45)
[2022-06-25] MEDS: MAG HYDROX/AL HYDROX/SIMETH 30 ML UNIT-DOSE CUP PO PRN (06:18)
[2022-06-25] MEDS ORDERED: ASPIRIN COATED 81 MG TABLET.EC PO ONE (10:00)
[2022-06-25] MEDS: PRENATAL VITAMINS W/ FOLIC ACID TABLET (FP) PO SCH (10:06)
[2022-06-25] MEDS: METHOCARBAMOL 500 MG TABLET PO PRN ×2 (10:09→17:56)
[2022-06-25] MEDS: PANTOPRAZOLE 40 MG TABLET PO SCH (10:46)
[2022-06-25] MEDS: ASPIRIN COATED 81 MG TABLET.EC PO SCH (10:47)
[2022-06-25] MEDS: SPIRONOLACTONE 25 MG TABLET PO SCH (11:10)
[2022-06-25] MEDS: SIMETHICONE 80 MG TAB.CHEW (FP) PO SCH ×3 (14:49→22:57)
[2022-06-25] MEDS: diazePAM 5 MG TABLET PO PRN ×2 (14:50→20:29)
[2022-06-25] MEDS: THIAMINE HCL 100 MG TABLET (FP) PO SCH (22:57)
[2022-06-25] MEDS: ATORVASTATIN CA 10 MG TABLET (FP) PO SCH (22:57)
[2022-06-25] MEDS: MELATONIN 5 MG TABLETS PO PRN (23:00)
[2022-06-26] MEDS: GABAPENTIN 300 MG CAPSULE PO SCH ×3 (05:27→22:11)
[2022-06-26] MEDS: diazePAM 5 MG TABLET PO SCH ×3 (05:27→22:12)
[2022-06-26] MEDS: METHOCARBAMOL 500 MG TABLET PO PRN (05:28)
[2022-06-26] MEDS: metFORMIN HCL 500 MG TABLET (FP) PO SCH (06:53)
[2022-06-26] MEDS: ASPIRIN COATED 81 MG TABLET.EC PO SCH (10:05)
[2022-06-26] MEDS: SIMETHICONE 80 MG TAB.CHEW (FP) PO SCH ×4 (10:05→22:11)
[2022-06-26] MEDS: PANTOPRAZOLE 40 MG TABLET PO SCH (10:05)
[2022-06-26] MEDS: SPIRONOLACTONE 25 MG TABLET PO SCH (10:05)
[2022-06-26] MEDS: PRENATAL VITAMINS W/ FOLIC ACID TABLET (FP) PO SCH (10:05)
[2022-06-26] MEDS: hydrOXYzine PAMOATE 25 MG CAPSULE (FP) PO PRN ×2 (10:06→18:18)
[2022-06-26] MEDS: diazePAM 5 MG TABLET PO PRN (10:06)
[2022-06-26] MEDS: QUEtiapine FUMARATE 100 MG TABLET (FP) PO SCH (22:11)
[2022-06-26] MEDS: ATORVASTATIN CA 10 MG TABLET (FP) PO SCH (22:11)
[2022-06-26] MEDS: THIAMINE HCL 100 MG TABLET (FP) PO SCH (22:12)
[2022-06-26] MEDS: MELATONIN 5 MG TABLETS PO PRN (22:12)
[2022-06-27] MEDS: GABAPENTIN 300 MG CAPSULE PO SCH ×3 (05:36→22:11)
[2022-06-27] MEDS: diazePAM 5 MG TABLET PO SCH ×2 (05:37→17:42)
[2022-06-27] MEDS: hydrOXYzine PAMOATE 25 MG CAPSULE (FP) PO PRN ×2 (05:41→17:43)
[2022-06-27] MEDS: MAG HYDROX/AL HYDROX/SIMETH 30 ML UNIT-DOSE CUP PO PRN ×2 (05:59→17:46)
[2022-06-27] MEDS: metFORMIN HCL 500 MG TABLET (FP) PO SCH (06:10)
[2022-06-27] MEDS: SPIRONOLACTONE 25 MG TABLET PO SCH (10:07)
[2022-06-27] MEDS: diazePAM 5 MG TABLET PO PRN (10:07)
[2022-06-27] MEDS: ASPIRIN COATED 81 MG TABLET.EC PO SCH (10:07)
[2022-06-27] MEDS: PANTOPRAZOLE 40 MG TABLET PO SCH (10:08)
[2022-06-27] MEDS: PRENATAL VITAMINS W/ FOLIC ACID TABLET (FP) PO SCH (10:08)
[2022-06-27] MEDS: METHOCARBAMOL 500 MG TABLET PO PRN ×2 (10:08→22:13)
[2022-06-27] MEDS: SIMETHICONE 80 MG TAB.CHEW (FP) PO SCH ×4 (10:09→22:12)
[2022-06-27 13:12] LABS: HEMATOCRIT 37.3 % (32.4-45.2); HEMOGLOBIN 12.7 GM/dL (10.7-15.3); MCH 35.8 pg (25.7-33.7); MEAN CELL VOLUME 105.3 fl (80-96); MEAN PLT VOLUME 9.2 fl (7.5-11.1); PLATELET COUNT 240 10^3/uL (134-434); RBC 3.54 M/mm3 (3.60-5.2); RDW 17.9 % (11.6-15.6); WHITE BLOOD COUNT 7.2 K/mm3 (4.0-10.0)
[2022-06-27 13:21] LABS: BLOOD UREA NITROGEN 9.4 mg/dL (7-18)
[2022-06-27 13:22] LABS: ALBUMIN 3.4 g/dl (3.4-5.0)
[2022-06-27 13:23] LABS: CALCIUM 9.8 mg/dL (8.5-10.1)
[2022-06-27 13:24] LABS: CREATININE 0.9 mg/dL (0.55-1.3)
[2022-06-27 13:27] LABS: BILIRUBIN,TOTAL 0.6 mg/dL (0.2-1); TOT PROT 7.7 g/dl (6.4-8.2)
[2022-06-27] MEDS ORDERED: FAMOTIDINE 20 MG TABLET PO SCH (18:30)
[2022-06-27] MEDS: THIAMINE HCL 100 MG TABLET (FP) PO SCH (22:11)
[2022-06-27] MEDS: ATORVASTATIN CA 10 MG TABLET (FP) PO SCH (22:11)
[2022-06-27] MEDS: QUEtiapine FUMARATE 100 MG TABLET (FP) PO SCH (22:11)
[2022-06-27] MEDS: MELATONIN 5 MG TABLETS PO PRN (22:12)
[2022-06-28] MEDS ORDERED: diazePAM 5 MG TABLET PO ONE (06:00)
[2022-06-28] MEDS: hydrOXYzine PAMOATE 25 MG CAPSULE (FP) PO PRN (06:06)
[2022-06-28] MEDS: GABAPENTIN 300 MG CAPSULE PO SCH (06:07)
[2022-06-28] MEDS: METHOCARBAMOL 500 MG TABLET PO PRN (06:07)
[2022-06-28] MEDS: metFORMIN HCL 500 MG TABLET (FP) PO SCH (07:50)
[2022-06-28 09:02] VITALS: BP 102/67; PULSE 86; RESP 17; TEMP 97.7
== END 2022-06-28 09:39 | disposition home or self-care (01) | DRG 775 ==
LOC: YASAS 13:07 → Y3N 16:44
PROVIDERS: ADMIT Allergy & Immunology; ATTEND Surgery
PROC: HZ2ZZZZ Detoxification Services for Substance Abuse Treatment (ICD-10-PCS; principal; 2022-06-24)
DX: F10.230 Alcohol dependence with withdrawal, uncomplicated (principal); F13.20 Sedative, hypnotic or anxiolytic dependence, uncomplicated; F12.20 Cannabis dependence, uncomplicated; F17.210 Nicotine dependence, cigarettes, uncomplicated; F31.9 Bipolar disorder, unspecified; F19.24 Other psychoactive substance dependence with psychoactive substance-induced mood disorder; G62.9 Polyneuropathy, unspecified; E78.5 Hyperlipidemia, unspecified; I10 Essential (primary) hypertension; K21.9 Gastro-esophageal reflux disease without esophagitis; K74.60 Unspecified cirrhosis of liver; R73.03 Prediabetes; Z79.84 Long term (current) use of oral hypoglycemic drugs
CPT/HCPCS: 36415; 80053; 82962; 85027; 86780; C9803-CS; U0003; U0005

== ENCOUNTER 2022-09-07 17:30 | Inpatient (IN) | payer OTHER ==
[2022-09-07 18:36] VITALS: BMI 24.5
[2022-09-07] MEDS ORDERED: POLYETHYLENE GLYCOL (HEALTHYLAX) 3350 17 GM PACKET PO PRN (18:54)
[2022-09-07] MEDS ORDERED: IBUPROFEN 400 MG TABLET (FP) PO PRN (18:54)
[2022-09-07] MEDS ORDERED: NICOTINE POLACRILEX 2 MG GUM BUC PRN (18:54)
[2022-09-07] MEDS ORDERED: NALOXONE HCL 0.4 MG/ML VIAL IM PRN (18:54)
[2022-09-07] MEDS ORDERED: DICYCLOMINE HCL 10 MG CAPSULE PO PRN (18:54)
[2022-09-07] MEDS ORDERED: ACETAMINOPHEN 325 MG TABLET (FP) PO PRN (18:54)
[2022-09-07] MEDS ORDERED: LOPERAMIDE HCL 2 MG CAPSULE PO PRN (18:54)
[2022-09-07] MEDS ORDERED: MAGNESIUM HYDROX 2400MG/30ML ORAL SUSPENSION 30 ML CUP PO PRN (18:54)
[2022-09-07] MEDS ORDERED: BISMUTH SUBSALICYLATE 524 MG/30 ML PO PRN (18:54)
[2022-09-07] MEDS ORDERED: P-EPHED 60MG/TRIPROLIDI 2.5MG TABLET PO PRN (18:54)
[2022-09-07] MEDS ORDERED: BENZONATATE 200 MG CAPSULE PO PRN (18:54)
[2022-09-07] MEDS ORDERED: guaiFENesin 600 MG TABLET.ER (FP) PO PRN (18:54)
[2022-09-07] MEDS ORDERED: MAG HYDROX/AL HYDROX/SIMETH 30 ML UNIT-DOSE CUP PO PRN (18:54)
[2022-09-07] MEDS ORDERED: BENZOCAINE/MENTHOL (CHLORASEPTIC ) LOZENGE MM PRN (18:54)
[2022-09-07] MEDS ORDERED: NALOXONE HCL (KLOXXADO) 8 MG SPRAY NS PRN (18:54)
[2022-09-07] MEDS ORDERED: ONDANSETRON *ODT* 4 MG TABLET ONE (19:24)
[2022-09-07] MEDS ORDERED: LORazepam 1 MG TABLET ONE (19:25)
[2022-09-07] MEDS: ONDANSETRON *ODT* 4 MG TABLET SL PRN (19:27)
[2022-09-07] MEDS: LORazepam 1 MG TABLET PO PRN (19:46)
[2022-09-07] MEDS ORDERED: MELATONIN 5 MG TABLETS PO SCH (22:00)
[2022-09-07] MEDS: THIAMINE HCL 100 MG TABLET (FP) PO SCH (22:12)
[2022-09-07] MEDS: LORazepam 2 MG TABLET PO SCH (22:13)
[2022-09-07] MEDS: IBUPROFEN 600 MG TABLET (FP) PO PRN (22:17)
[2022-09-08] MEDS: ONDANSETRON *ODT* 4 MG TABLET SL PRN ×2 (06:29→13:48)
[2022-09-08] MEDS: LORazepam 2 MG TABLET PO SCH ×4 (06:37→22:20)
[2022-09-08] MEDS: metFORMIN HCL 500 MG TABLET (FP) PO SCH (07:13)
[2022-09-08] MEDS: PANTOPRAZOLE 40 MG TABLET PO SCH (10:07)
[2022-09-08] MEDS: NICOTINE 14 MG/24 HOURS TOPICAL PATCH TD SCH (10:07)
[2022-09-08] MEDS: PRENATAL VITAMINS W/ FOLIC ACID TABLET (FP) PO SCH (10:07)
[2022-09-08] MEDS: ASPIRIN COATED 81 MG TABLET.EC PO SCH (10:07)
[2022-09-08 11:02] LABS: HEMATOCRIT 37.7 % (32.4-45.2); HEMOGLOBIN 12.7 GM/dL (10.7-15.3); MCH 34.4 pg (25.7-33.7); MCHC 33.8 g/dl (32.0-36.0); MEAN CELL VOLUME 101.8 fl (80-96); MEAN PLT VOLUME 9.4 fl (7.5-11.1); PLATELET COUNT 324 10^3/uL (134-434); RDW 17.3 % (11.6-15.6); WHITE BLOOD COUNT 8.9 K/mm3 (4.0-10.0)
[2022-09-08 11:07] LABS: ALBUMIN 3.5 g/dl (3.4-5.0); BLOOD UREA NITROGEN 6.7 mg/dL (7-18); CALCIUM 9.1 mg/dL (8.5-10.1)
[2022-09-08 11:10] LABS: CREATININE 0.8 mg/dL (0.55-1.3)
[2022-09-08 11:12] LABS: BILIRUBIN,TOTAL 0.8 mg/dL (0.2-1); TOT PROT 7.6 g/dl (6.4-8.2)
[2022-09-08] MEDS: IBUPROFEN 600 MG TABLET (FP) PO PRN (13:44)
[2022-09-08] MEDS: LORazepam 1 MG TABLET PO PRN (13:45)
[2022-09-08] MEDS: hydrOXYzine PAMOATE 25 MG CAPSULE (FP) PO PRN (15:43)
[2022-09-08 16:23] LABS: EPI CELLS >36 /uL (0-25.1); HYALINE CASTS 7 /uL (0-3.1); PH,URINE 6.5 (5.0-8.0); URINE APPEARANCE TURBID; URINE BACTERIA 2925 /uL (0-1359); URINE BILIRUBIN 1+ (NEGATIVE); URINE COLOR DK YELLOW; URINE GLUCOSE (UA) NEGATIVE (NEGATIVE); URINE KETONE TRACE (NEGATIVE); URINE LEUK ESTERASE 1+ (NEGATIVE); URINE NITRITE NEGATIVE (NEGATIVE); URINE PROTEIN 2+ (NEGATIVE); URINE RBC 210 /uL (0-23.9); URINE WBC 259 /uL (0-25.8)
[2022-09-08] MEDS ORDERED: GABAPENTIN 300 MG CAPSULE PO SCH ×2 (17:52→22:00)
[2022-09-08] MEDS: GABAPENTIN 300 MG CAPSULE PO SCH ×2 (18:05→22:20)
[2022-09-08] MEDS: SIMETHICONE 80 MG TAB.CHEW (FP) PO SCH ×2 (18:12→22:20)
[2022-09-08] MEDS ORDERED: ATORVASTATIN CA 10 MG TABLET (FP) PO SCH (22:00)
[2022-09-08] MEDS ORDERED: QUEtiapine FUMARATE 200 MG TABLET PO SCH (22:00)
[2022-09-08] MEDS ORDERED: PATIENT'S OWN MEDICATION (NON-FORMULARY) (Simvastatin [Zocor] 20 MG Tablet) PO SCH (22:00)
[2022-09-08] MEDS ORDERED: SUVOREXANT 10 MG TABLET PO PRN (22:00)
[2022-09-08] MEDS: THIAMINE HCL 100 MG TABLET (FP) PO SCH (22:20)
[2022-09-09] MEDS: GABAPENTIN 300 MG CAPSULE PO SCH ×2 (05:45→13:58)
[2022-09-09] MEDS: LORazepam 1 MG TABLET PO SCH ×2 (05:45→10:11)
[2022-09-09] MEDS: hydrOXYzine PAMOATE 25 MG CAPSULE (FP) PO PRN (05:45)
[2022-09-09] MEDS: metFORMIN HCL 500 MG TABLET (FP) PO SCH (07:06)
[2022-09-09 09:27] VITALS: BP 128/95; PULSE 90; RESP 18; TEMP 98.2
[2022-09-09] MEDS: PRENATAL VITAMINS W/ FOLIC ACID TABLET (FP) PO SCH (10:12)
[2022-09-09] MEDS: PANTOPRAZOLE 40 MG TABLET PO SCH (10:12)
[2022-09-09] MEDS: ASPIRIN COATED 81 MG TABLET.EC PO SCH (10:12)
[2022-09-09] MEDS: NICOTINE 14 MG/24 HOURS TOPICAL PATCH TD SCH (10:12)
[2022-09-09] MEDS: SIMETHICONE 80 MG TAB.CHEW (FP) PO SCH ×2 (10:13→13:58)
[2022-09-10] MEDS ORDERED: LORazepam 0.5 MG TABLET PO PRN
[2022-09-10] MEDS ORDERED: LORazepam 0.5 MG TABLET PO SCH (05:00)
[2022-09-11] MEDS ORDERED: LORazepam 0.5 MG TABLET PO ONE (05:00)
== END 2022-09-09 12:11 | disposition left against medical advice (07) | DRG 770 ==
LOC: YASAS 17:30 → Y3N 19:10
PROVIDERS: ADMIT Allergy & Immunology; ATTEND Surgery
PROC: HZ2ZZZZ Detoxification Services for Substance Abuse Treatment (ICD-10-PCS; principal; 2022-09-07)
DX: F10.230 Alcohol dependence with withdrawal, uncomplicated (principal); F13.20 Sedative, hypnotic or anxiolytic dependence, uncomplicated; F12.20 Cannabis dependence, uncomplicated; F17.210 Nicotine dependence, cigarettes, uncomplicated; F10.282 Alcohol dependence with alcohol-induced sleep disorder; F10.280 Alcohol dependence with alcohol-induced anxiety disorder; F10.24 Alcohol dependence with alcohol-induced mood disorder; F19.24 Other psychoactive substance dependence with psychoactive substance-induced mood disorder; F31.9 Bipolar disorder, unspecified; F41.9 Anxiety disorder, unspecified; G62.9 Polyneuropathy, unspecified; I10 Essential (primary) hypertension; K21.9 Gastro-esophageal reflux disease without esophagitis; R73.03 Prediabetes
CPT/HCPCS: 36415; 80053; 81003; 82962; 85027; 86780; 87811; 93005; 93010; C9803-CS; Q0162; U0003; U0005

== ENCOUNTER 2022-10-27 11:04 | Inpatient (IN) | payer OTHER ==
[2022-10-27 11:30] VITALS: BMI 24.0
[2022-10-27] MEDS ORDERED: IBUPROFEN 400 MG TABLET (FP) PO PRN (13:49)
[2022-10-27] MEDS ORDERED: BENZOCAINE/MENTHOL (CHLORASEPTIC ) LOZENGE MM PRN (13:49)
[2022-10-27] MEDS ORDERED: MAG HYDROX/AL HYDROX/SIMETH 30 ML UNIT-DOSE CUP PO PRN (13:49)
[2022-10-27] MEDS ORDERED: DICYCLOMINE HCL 10 MG CAPSULE PO PRN (13:49)
[2022-10-27] MEDS ORDERED: POLYETHYLENE GLYCOL (HEALTHYLAX) 3350 17 GM PACKET PO PRN (13:49)
[2022-10-27] MEDS ORDERED: NALOXONE HCL 0.4 MG/ML VIAL IM PRN (13:49)
[2022-10-27] MEDS ORDERED: NICOTINE 10 MG CARTRIDGE (INHALER) IH PRN (13:49)
[2022-10-27] MEDS ORDERED: BENZONATATE 200 MG CAPSULE PO PRN (13:49)
[2022-10-27] MEDS ORDERED: BISMUTH SUBSALICYLATE 524 MG/30 ML PO PRN (13:49)
[2022-10-27] MEDS ORDERED: LOPERAMIDE HCL 2 MG CAPSULE PO PRN (13:49)
[2022-10-27] MEDS ORDERED: NALOXONE HCL (KLOXXADO) 8 MG SPRAY NS PRN (13:49)
[2022-10-27] MEDS ORDERED: ACETAMINOPHEN 325 MG TABLET (FP) PO PRN (13:49)
[2022-10-27] MEDS ORDERED: MAGNESIUM HYDROX 2400MG/30ML ORAL SUSPENSION 30 ML CUP PO PRN (13:49)
[2022-10-27] MEDS ORDERED: guaiFENesin 600 MG TABLET.ER (FP) PO PRN (13:49)
[2022-10-27] MEDS: diazePAM 5 MG TABLET PO SCH ×2 (16:41→22:20)
[2022-10-27] MEDS: IBUPROFEN 600 MG TABLET (FP) PO PRN (16:44)
[2022-10-27] MEDS: ONDANSETRON *ODT* 4 MG TABLET SL PRN (16:47)
[2022-10-27] MEDS: METHOCARBAMOL 500 MG TABLET PO PRN (19:19)
[2022-10-27] MEDS: hydrOXYzine PAMOATE 25 MG CAPSULE (FP) PO PRN (19:19)
[2022-10-27] MEDS ORDERED: MELATONIN 5 MG TABLETS PO SCH (22:00)
[2022-10-27] MEDS: THIAMINE HCL 100 MG TABLET (FP) PO SCH (22:19)
[2022-10-28] MEDS: hydrOXYzine PAMOATE 25 MG CAPSULE (FP) PO PRN (05:34)
[2022-10-28] MEDS: diazePAM 5 MG TABLET PO SCH ×4 (05:34→22:09)
[2022-10-28] MEDS: ONDANSETRON *ODT* 4 MG TABLET SL PRN (05:50)
[2022-10-28] MEDS: METHOCARBAMOL 500 MG TABLET PO PRN (10:09)
[2022-10-28] MEDS: PRENATAL VITAMINS W/ FOLIC ACID TABLET (FP) PO SCH (10:09)
[2022-10-28] MEDS: IBUPROFEN 600 MG TABLET (FP) PO PRN ×2 (10:09→19:27)
[2022-10-28 10:51] LABS: HEMATOCRIT 36.3 % (32.4-45.2); MCHC 33.1 g/dl (32.0-36.0); MEAN CELL VOLUME 105.9 fl (80-96); MEAN PLT VOLUME 9.9 fl (7.5-11.1); PLATELET COUNT 265 10^3/uL (134-434); RBC 3.43 M/mm3 (3.60-5.2); RDW 18.4 % (11.6-15.6); WHITE BLOOD COUNT 6.3 K/mm3 (4.0-10.0)
[2022-10-28] MEDS ORDERED: SIMETHICONE 80 MG TAB.CHEW (FP) PO PRN (10:56)
[2022-10-28] MEDS ORDERED: ASPIRIN COATED 81 MG TABLET.EC PO SCH (11:00)
[2022-10-28 11:15] LABS: POTASSIUM 3.6 mmol/L (3.5-5.1)
[2022-10-28 11:18] LABS: CALCIUM 9.1 mg/dL (8.5-10.1)
[2022-10-28 11:21] LABS: ALBUMIN 3.1 g/dl (3.4-5.0)
[2022-10-28 11:22] LABS: CREATININE 0.6 mg/dL (0.55-1.3)
[2022-10-28 11:23] LABS: TOT PROT 6.9 g/dl (6.4-8.2)
[2022-10-28 11:24] LABS: BILIRUBIN,TOTAL 1.4 mg/dL (0.2-1)
[2022-10-28] MEDS ORDERED: PNEUMOC 20-VAL CONJ-DIP CRM/PF 0.5 ML SYRINGE IM ONE (12:00)
[2022-10-28] MEDS: diazePAM 5 MG TABLET PO PRN (13:23)
[2022-10-28 13:38] LABS: EPI CELLS >36 /uL (0-25.1); HYALINE CASTS 2 /uL (0-3.1); URINE APPEARANCE CLOUDY; URINE BACTERIA 4120 /uL (0-1359); URINE BILIRUBIN 1+ (NEGATIVE); URINE COLOR DK YELLOW; URINE GLUCOSE (UA) TRACE (NEGATIVE); URINE KETONE 2+ (NEGATIVE); URINE LEUK ESTERASE TRACE (NEGATIVE); URINE NITRITE POSITIVE (NEGATIVE); URINE PROTEIN 2+ (NEGATIVE); URINE RBC 10 /uL (0-23.9); URINE UROBILINOGEN 4.0 E.U/dl mg/dL (0.2-1.0); URINE WBC 42 /uL (0-25.8)
[2022-10-28] MEDS: NITROFURANTOIN MACROCRYSTAL 50 MG CAPSULE (FP) PO SCH (21:36)
[2022-10-28] MEDS: THIAMINE HCL 100 MG TABLET (FP) PO SCH (22:09)
[2022-10-28] MEDS: QUEtiapine FUMARATE 200 MG TABLET PO SCH (22:09)
[2022-10-28] MEDS: SUVOREXANT 10 MG TABLET PO PRN (22:09)
[2022-10-29] MEDS: NITROFURANTOIN MACROCRYSTAL 50 MG CAPSULE (FP) PO SCH ×4 (01:50→20:23)
[2022-10-29] MEDS: diazePAM 5 MG TABLET PO SCH ×3 (05:31→22:27)
[2022-10-29] MEDS: metFORMIN HCL 500 MG TABLET (FP) PO SCH (06:12)
[2022-10-29] MEDS ORDERED: FUROSEMIDE 20 MG TABLET (FP) PO SCH (10:00)
[2022-10-29] MEDS ORDERED: ASPIRIN 81 MG CHEWABLE TABLETS PO SCH (10:00)
[2022-10-29] MEDS ORDERED: SPIRONOLACTONE 25 MG TABLET PO SCH (10:00)
[2022-10-29] MEDS ORDERED: PANTOPRAZOLE 40 MG TABLET PO SCH (10:00)
[2022-10-29] MEDS ORDERED: SULFAMETHOXAZOLE/TRIMETHOPRIM 800MG/160MG D.S. TABLET PO SCH (10:00)
[2022-10-29] MEDS: PRENATAL VITAMINS W/ FOLIC ACID TABLET (FP) PO SCH (10:21)
[2022-10-29] MEDS: METHOCARBAMOL 500 MG TABLET PO PRN (10:21)
[2022-10-29] MEDS: diazePAM 5 MG TABLET PO PRN ×2 (10:22→17:11)
[2022-10-29] MEDS: hydrOXYzine PAMOATE 25 MG CAPSULE (FP) PO PRN (17:11)
[2022-10-29] MEDS: THIAMINE HCL 100 MG TABLET (FP) PO SCH (22:26)
[2022-10-29] MEDS: SUVOREXANT 10 MG TABLET PO PRN (22:26)
[2022-10-29] MEDS: QUEtiapine FUMARATE 200 MG TABLET PO SCH (22:26)
[2022-10-30] MEDS: NITROFURANTOIN MACROCRYSTAL 50 MG CAPSULE (FP) PO SCH ×2 (02:28→06:49)
[2022-10-30] MEDS ORDERED: diazePAM 5 MG TABLET PO SCH (06:00)
[2022-10-30] MEDS: metFORMIN HCL 500 MG TABLET (FP) PO SCH (06:19)
[2022-10-30 06:51] VITALS: BP 120/72; PULSE 87; RESP 16; TEMP 96.9
[2022-10-31] MEDS ORDERED: diazePAM 5 MG TABLET PO ONE (06:00)
== END 2022-10-30 08:54 | disposition home or self-care (01) | DRG 774 ==
LOC: YASAS 11:04 → Y6N 13:43
PROVIDERS: ADMIT Allergy & Immunology; ATTEND Surgery
PROC: HZ2ZZZZ Detoxification Services for Substance Abuse Treatment (ICD-10-PCS; principal; 2022-10-27)
DX: F10.230 Alcohol dependence with withdrawal, uncomplicated (principal); F14.20 Cocaine dependence, uncomplicated; F12.20 Cannabis dependence, uncomplicated; F17.210 Nicotine dependence, cigarettes, uncomplicated; F10.280 Alcohol dependence with alcohol-induced anxiety disorder; F10.282 Alcohol dependence with alcohol-induced sleep disorder; F10.24 Alcohol dependence with alcohol-induced mood disorder; F31.9 Bipolar disorder, unspecified; I10 Essential (primary) hypertension; K21.9 Gastro-esophageal reflux disease without esophagitis; K70.30 Alcoholic cirrhosis of liver without ascites; N39.0 Urinary tract infection, site not specified; E11.9 Type 2 diabetes mellitus without complications; Z79.84 Long term (current) use of oral hypoglycemic drugs
CPT/HCPCS: 36415; 80053; 81003; 82962; 85027; 86780; 87635; 87811; Q0162

== ENCOUNTER 2023-02-19 05:42 | Inpatient (IN) | payer OTHER ==
[2023-02-19 06:35] VITALS: BMI 23.0
[2023-02-19] MEDS ORDERED: chlordiazePOXIDE HCL 25 MG CAPSULE PO ONE (06:40)
[2023-02-19] MEDS ORDERED: ONDANSETRON *ODT* 4 MG TABLET SL ONE (06:40)
[2023-02-19] MEDS ORDERED: chlordiazePOXIDE HCL 25 MG CAPSULE ONE (06:53)
[2023-02-19] MEDS ORDERED: ONDANSETRON *ODT* 4 MG TABLET ONE (06:53)
[2023-02-19] MEDS ORDERED: BISMUTH SUBSALICYLATE 524 MG/30 ML PO PRN (08:16)
[2023-02-19] MEDS ORDERED: IBUPROFEN 400 MG TABLET (FP) PO PRN (08:16)
[2023-02-19] MEDS ORDERED: DICYCLOMINE HCL 10 MG CAPSULE PO PRN (08:16)
[2023-02-19] MEDS ORDERED: NALOXONE HCL (KLOXXADO) 8 MG SPRAY NS PRN (08:16)
[2023-02-19] MEDS ORDERED: NALOXONE HCL 0.4 MG/ML VIAL IM PRN (08:16)
[2023-02-19] MEDS ORDERED: guaiFENesin 600 MG TABLET.ER (FP) PO PRN (08:16)
[2023-02-19] MEDS ORDERED: BENZOCAINE/MENTHOL (CHLORASEPTIC ) LOZENGE MM PRN (08:16)
[2023-02-19] MEDS ORDERED: LOPERAMIDE HCL 2 MG CAPSULE PO PRN (08:16)
[2023-02-19] MEDS ORDERED: POLYETHYLENE GLYCOL (HEALTHYLAX) 3350 17 GM PACKET PO PRN (08:16)
[2023-02-19] MEDS ORDERED: BENZONATATE 200 MG CAPSULE PO PRN (08:16)
[2023-02-19] MEDS ORDERED: ONDANSETRON *ODT* 4 MG TABLET SL PRN (08:16)
[2023-02-19] MEDS ORDERED: MAG HYDROX/AL HYDROX/SIMETH 30 ML UNIT-DOSE CUP PO PRN (08:16)
[2023-02-19] MEDS ORDERED: IBUPROFEN 600 MG TABLET (FP) PO PRN (08:16)
[2023-02-19] MEDS ORDERED: ACETAMINOPHEN 325 MG TABLET (FP) PO PRN (08:16)
[2023-02-19] MEDS ORDERED: MAGNESIUM HYDROX 2400MG/30ML ORAL SUSPENSION 30 ML CUP PO PRN (08:16)
[2023-02-19] MEDS ORDERED: SPIRONOLACTONE 25 MG TABLET PO PRN (08:21)
[2023-02-19] MEDS ORDERED: FUROSEMIDE 20 MG TABLET (FP) PO PRN (08:21)
[2023-02-19] MEDS ORDERED: PRENATAL VITAMINS W/ FOLIC ACID TABLET (FP) PO ONE (10:01)
[2023-02-19] MEDS ORDERED: LORazepam 2 MG TABLET ONE (10:01)
[2023-02-19] MEDS: PRENATAL VITAMINS W/ FOLIC ACID TABLET (FP) PO SCH (10:04)
[2023-02-19] MEDS: NICOTINE 14 MG/24 HOURS TOPICAL PATCH TD SCH (10:04)
[2023-02-19] MEDS: LORazepam 2 MG TABLET PO SCH ×3 (10:04→22:16)
[2023-02-19] MEDS: PANTOPRAZOLE 40 MG TABLET PO SCH (10:26)
[2023-02-19] MEDS: ASPIRIN 81 MG CHEWABLE TABLETS PO SCH (11:17)
[2023-02-19] MEDS: hydrOXYzine PAMOATE 25 MG CAPSULE (FP) PO PRN ×2 (12:37→22:18)
[2023-02-19] MEDS: LACTULOSE 20 GM/30 ML UDC (FOR ORAL USE ONLY) PO SCH ×2 (14:54→22:15)
[2023-02-19] MEDS ORDERED: MELATONIN 5 MG TABLETS PO SCH (22:00)
[2023-02-19] MEDS: ATORVASTATIN CA 10 MG TABLET (FP) PO SCH (22:16)
[2023-02-19] MEDS: SUVOREXANT 10 MG TABLET PO PRN (22:16)
[2023-02-19] MEDS: THIAMINE HCL 100 MG TABLET (FP) PO SCH (22:16)
[2023-02-20] MEDS: LORazepam 2 MG TABLET PO SCH ×4 (05:47→22:26)
[2023-02-20] MEDS: LACTULOSE 20 GM/30 ML UDC (FOR ORAL USE ONLY) PO SCH ×3 (05:47→22:25)
[2023-02-20] MEDS: metFORMIN HCL 500 MG TABLET (FP) PO SCH (06:28)
[2023-02-20] MEDS: LORazepam 1 MG TABLET PO PRN (07:52)
[2023-02-20] MEDS: hydrOXYzine PAMOATE 25 MG CAPSULE (FP) PO PRN ×2 (07:52→15:53)
[2023-02-20] MEDS: ASPIRIN 81 MG CHEWABLE TABLETS PO SCH (10:18)
[2023-02-20] MEDS: NICOTINE 14 MG/24 HOURS TOPICAL PATCH TD SCH (10:18)
[2023-02-20] MEDS: PRENATAL VITAMINS W/ FOLIC ACID TABLET (FP) PO SCH (10:18)
[2023-02-20] MEDS: PANTOPRAZOLE 40 MG TABLET PO SCH (10:18)
[2023-02-20] MEDS: GABAPENTIN 300 MG CAPSULE PO SCH ×3 (11:27→22:25)
[2023-02-20] MEDS ORDERED: PATIENT'S OWN MEDICATION (NON-FORMULARY) (Gabapentin [Gralise] 900 MG Tab.Er.24h) PO SCH (14:00)
[2023-02-20] MEDS: SUVOREXANT 10 MG TABLET PO PRN (22:25)
[2023-02-20] MEDS: THIAMINE HCL 100 MG TABLET (FP) PO SCH (22:25)
[2023-02-20] MEDS: ATORVASTATIN CA 10 MG TABLET (FP) PO SCH (22:25)
[2023-02-20] MEDS: QUEtiapine FUMARATE 200 MG TABLET PO SCH (22:26)
[2023-02-21] MEDS: LORazepam 1 MG TABLET PO SCH ×4 (05:33→22:10)
[2023-02-21] MEDS: LACTULOSE 20 GM/30 ML UDC (FOR ORAL USE ONLY) PO SCH ×3 (05:34→22:09)
[2023-02-21] MEDS: GABAPENTIN 300 MG CAPSULE PO SCH ×3 (05:34→22:09)
[2023-02-21] MEDS: metFORMIN HCL 500 MG TABLET (FP) PO SCH (07:06)
[2023-02-21] MEDS: PANTOPRAZOLE 40 MG TABLET PO SCH (10:08)
[2023-02-21] MEDS: PRENATAL VITAMINS W/ FOLIC ACID TABLET (FP) PO SCH (10:08)
[2023-02-21] MEDS: NICOTINE 14 MG/24 HOURS TOPICAL PATCH TD SCH (10:08)
[2023-02-21] MEDS: ASPIRIN 81 MG CHEWABLE TABLETS PO SCH (10:08)
[2023-02-21] MEDS: LORazepam 1 MG TABLET PO PRN (12:55)
[2023-02-21] MEDS: hydrOXYzine PAMOATE 25 MG CAPSULE (FP) PO PRN (14:50)
[2023-02-21] MEDS: METHOCARBAMOL 500 MG TABLET PO PRN (17:54)
[2023-02-21] MEDS: QUEtiapine FUMARATE 200 MG TABLET PO SCH (22:09)
[2023-02-21] MEDS: THIAMINE HCL 100 MG TABLET (FP) PO SCH (22:09)
[2023-02-21] MEDS: ATORVASTATIN CA 10 MG TABLET (FP) PO SCH (22:09)
[2023-02-21] MEDS: SUVOREXANT 10 MG TABLET PO PRN (22:09)
[2023-02-22] MEDS: LORazepam 0.5 MG TABLET PO PRN ×2 (01:19→13:37)
[2023-02-22] MEDS: LORazepam 0.5 MG TABLET PO SCH ×4 (05:39→22:06)
[2023-02-22] MEDS: GABAPENTIN 300 MG CAPSULE PO SCH ×3 (05:40→22:06)
[2023-02-22] MEDS: LACTULOSE 20 GM/30 ML UDC (FOR ORAL USE ONLY) PO SCH ×3 (06:59→22:08)
[2023-02-22] MEDS: metFORMIN HCL 500 MG TABLET (FP) PO SCH (07:01)
[2023-02-22] MEDS: PRENATAL VITAMINS W/ FOLIC ACID TABLET (FP) PO SCH (10:11)
[2023-02-22] MEDS: ASPIRIN 81 MG CHEWABLE TABLETS PO SCH (10:12)
[2023-02-22] MEDS: PANTOPRAZOLE 40 MG TABLET PO SCH (10:12)
[2023-02-22] MEDS: NICOTINE 14 MG/24 HOURS TOPICAL PATCH TD SCH (10:12)
[2023-02-22] MEDS: hydrOXYzine PAMOATE 25 MG CAPSULE (FP) PO PRN ×2 (10:14→17:16)
[2023-02-22 12:12] LABS: POTASSIUM 4.1 mmol/L (3.5-5.1)
[2023-02-22 12:16] LABS: CALCIUM 9.4 mg/dL (8.5-10.1)
[2023-02-22 12:18] LABS: ALBUMIN 3.2 g/dl (3.4-5.0); BLOOD UREA NITROGEN 4.8 mg/dL (7-18)
[2023-02-22 12:20] LABS: CREATININE 0.7 mg/dL (0.55-1.3); HEMATOCRIT 34.8 % (32.4-45.2); MCH 34.6 pg (25.7-33.7); MCHC 34.4 g/dl (32.0-36.0); MEAN CELL VOLUME 100.5 fl (80-96); MEAN PLT VOLUME 9.1 fl (7.5-11.1); PLATELET COUNT 224 10^3/uL (134-434); RBC 3.46 M/mm3 (3.60-5.2); RDW 18.4 % (11.6-15.6); WHITE BLOOD COUNT 5.5 K/mm3 (4.0-10.0)
[2023-02-22 12:23] LABS: BILIRUBIN,TOTAL 0.4 mg/dL (0.2-1); TOT PROT 6.9 g/dl (6.4-8.2)
[2023-02-22] MEDS: METHOCARBAMOL 500 MG TABLET PO PRN (13:37)
[2023-02-22] MEDS ORDERED: SIMETHICONE 80 MG TAB.CHEW (FP) PO PRN (15:19)
[2023-02-22] MEDS: THIAMINE HCL 100 MG TABLET (FP) PO SCH (22:05)
[2023-02-22] MEDS: SUVOREXANT 10 MG TABLET PO PRN (22:05)
[2023-02-22] MEDS: QUEtiapine FUMARATE 200 MG TABLET PO SCH (22:06)
[2023-02-22] MEDS: ATORVASTATIN CA 10 MG TABLET (FP) PO SCH (22:06)
[2023-02-23] MEDS ORDERED: LORazepam 0.5 MG TABLET PO ONE (05:00)
[2023-02-23] MEDS: LACTULOSE 20 GM/30 ML UDC (FOR ORAL USE ONLY) PO SCH (05:47)
[2023-02-23] MEDS: GABAPENTIN 300 MG CAPSULE PO SCH (05:48)
[2023-02-23] MEDS: hydrOXYzine PAMOATE 25 MG CAPSULE (FP) PO PRN (05:53)
[2023-02-23] MEDS: metFORMIN HCL 500 MG TABLET (FP) PO SCH (06:17)
[2023-02-23 09:01] VITALS: BP 142/97; PULSE 85; RESP 17; TEMP 98.1
[2023-02-23] MEDS: PANTOPRAZOLE 40 MG TABLET PO SCH (09:06)
[2023-02-23] MEDS: ASPIRIN 81 MG CHEWABLE TABLETS PO SCH (09:06)
[2023-02-23] MEDS: PRENATAL VITAMINS W/ FOLIC ACID TABLET (FP) PO SCH (09:06)
[2023-02-23] MEDS: NICOTINE 14 MG/24 HOURS TOPICAL PATCH TD SCH (09:07)
== END 2023-02-23 09:17 | disposition home or self-care (01) | DRG 774 ==
LOC: YASAS 05:42 → Y3N 09:12
PROVIDERS: ADMIT Allergy & Immunology; ATTEND Surgery
PROC: HZ2ZZZZ Detoxification Services for Substance Abuse Treatment (ICD-10-PCS; principal; 2023-02-19)
DX: F10.230 Alcohol dependence with withdrawal, uncomplicated (principal); F14.20 Cocaine dependence, uncomplicated; F17.210 Nicotine dependence, cigarettes, uncomplicated; F19.282 Other psychoactive substance dependence with psychoactive substance-induced sleep disorder; F19.280 Other psychoactive substance dependence with psychoactive substance-induced anxiety disorder; F19.24 Other psychoactive substance dependence with psychoactive substance-induced mood disorder; F31.9 Bipolar disorder, unspecified; E72.20 Disorder of urea cycle metabolism, unspecified; E78.5 Hyperlipidemia, unspecified; I11.0 Hypertensive heart disease with heart failure; I50.9 Heart failure, unspecified; E11.42 Type 2 diabetes mellitus with diabetic polyneuropathy; Z79.84 Long term (current) use of oral hypoglycemic drugs; K21.9 Gastro-esophageal reflux disease without esophagitis; K70.30 Alcoholic cirrhosis of liver without ascites
CPT/HCPCS: 36415; 70450-TC; 72125-TC; 80053; 80307; 81003; 82140; 82962; 84443; 84484; 84703; 85025; 85027; 86780; 87635; 87811; 93005; 93010; 99283-25; Q0162

== ENCOUNTER 2023-07-25 08:06 | Inpatient (IN) | payer OTHER ==
[2023-07-25 09:15] VITALS: BMI 23.0
[2023-07-25] MEDS ORDERED: TRIMETHOBENZAMIDE HCL 200MG/2ML INJ IM ONE (09:36)
[2023-07-25] MEDS: TRIMETHOBENZAMIDE HCL 200MG/2ML INJ IM ONE (09:46)
[2023-07-25] MEDS ORDERED: SIMETHICONE 80 MG TAB.CHEW (FP) PO PRN (09:59)
[2023-07-25] MEDS ORDERED: LOPERAMIDE HCL 2 MG CAPSULE PO PRN (10:00)
[2023-07-25] MEDS ORDERED: POLYETHYLENE GLYCOL (HEALTHYLAX) 3350 17 GM PACKET PO PRN (10:00)
[2023-07-25] MEDS ORDERED: BENZONATATE 200 MG CAPSULE PO PRN (10:00)
[2023-07-25] MEDS ORDERED: P-EPHED 60MG/TRIPROLIDI 2.5MG TABLET PO PRN (10:00)
[2023-07-25] MEDS ORDERED: NICOTINE POLACRILEX 2 MG LOZENGE BC PRN (10:00)
[2023-07-25] MEDS ORDERED: guaiFENesin 600 MG TABLET.ER (FP) PO PRN (10:00)
[2023-07-25] MEDS ORDERED: BISMUTH SUBSALICYLATE 524 MG/30 ML PO PRN (10:00)
[2023-07-25] MEDS ORDERED: ACETAMINOPHEN 325 MG TABLET (FP) PO PRN (10:00)
[2023-07-25] MEDS ORDERED: IBUPROFEN 400 MG TABLET (FP) PO PRN (10:00)
[2023-07-25] MEDS ORDERED: BENZOCAINE/MENTHOL (CHLORASEPTIC ) LOZENGE MM PRN (10:00)
[2023-07-25] MEDS ORDERED: NICOTINE POLACRILEX 2 MG GUM BUC PRN (10:00)
[2023-07-25] MEDS ORDERED: DICYCLOMINE HCL 10 MG CAPSULE PO PRN (10:00)
[2023-07-25] MEDS ORDERED: MAGNESIUM HYDROX 2400MG/30ML ORAL SUSPENSION 30 ML CUP PO PRN (10:00)
[2023-07-25] MEDS ORDERED: chlordiazePOXIDE HCL 25 MG CAPSULE PO PRN (10:02)
[2023-07-25] MEDS: PRENATAL VITAMINS W/ FOLIC ACID TABLET (FP) PO SCH (10:29)
[2023-07-25] MEDS ORDERED: chlordiazePOXIDE HCL 25 MG CAPSULE ONE (10:44)
[2023-07-25] MEDS: chlordiazePOXIDE HCL 25 MG CAPSULE PO SCH (10:47)
[2023-07-25] MEDS: PANTOPRAZOLE 40 MG TABLET PO SCH ×2 (11:22→11:24)
[2023-07-25] MEDS: hydrOXYzine PAMOATE 25 MG CAPSULE (FP) PO PRN (13:45)
[2023-07-25] MEDS: ONDANSETRON *ODT* 4 MG TABLET SL PRN (13:46)
[2023-07-25] MEDS: MELATONIN 5 MG TABLETS PO SCH (22:26)
[2023-07-25] MEDS: THIAMINE HCL 100 MG TABLET (FP) PO SCH (22:26)
[2023-07-26] MEDS: MAG HYDROX/AL HYDROX/SIMETH 30 ML UNIT-DOSE CUP PO PRN (06:43)
[2023-07-26] MEDS: METHOCARBAMOL 500 MG TABLET PO PRN (10:23)
[2023-07-26] MEDS: LORazepam 2 MG TABLET PO SCH (11:46)
[2023-07-26 12:47] LABS: POTASSIUM 3.6 mmol/L (3.5-5.1)
[2023-07-26 12:50] LABS: CALCIUM 9.3 mg/dL (8.5-10.1)
[2023-07-26 12:51] LABS: ALBUMIN 3.6 g/dl (3.4-5.0); BLOOD UREA NITROGEN 7.9 mg/dL (7-18)
[2023-07-26 12:54] LABS: CREATININE 0.9 mg/dL (0.55-1.3)
[2023-07-26 12:56] LABS: TOT PROT 7.8 g/dl (6.4-8.2)
[2023-07-26 13:03] LABS: HEMATOCRIT 34.5 % (32.4-45.2); HEMOGLOBIN 11.8 GM/dL (10.7-15.3); MCH 35.9 pg (25.7-33.7); MCHC 34.1 g/dl (32.0-36.0); MEAN CELL VOLUME 105.2 fl (80-96); MEAN PLT VOLUME 8.5 fl (7.5-11.1); PLATELET COUNT 234 10^3/uL (134-434); RBC 3.28 M/mm3 (3.60-5.2); RDW 17.1 % (11.6-15.6)
[2023-07-26] MEDS: ASPIRIN 81 MG CHEWABLE TABLETS PO SCH ×2 (20:55→22:36)
[2023-07-26] MEDS: QUEtiapine FUMARATE 200 MG TABLET PO ONE (22:36)
[2023-07-26] MEDS: ATORVASTATIN CA 10 MG TABLET (FP) PO SCH (22:37)
[2023-07-27] MEDS ORDERED: chlordiazePOXIDE HCL 25 MG CAPSULE PO SCH (05:00)
[2023-07-27] MEDS: LORazepam 1 MG TABLET PO SCH (05:34)
[2023-07-27] MEDS: metFORMIN HCL 500 MG TABLET (FP) PO SCH (07:05)
[2023-07-27] MEDS: LORazepam 0.5 MG TABLET PO PRN (13:21)
[2023-07-27] MEDS: QUEtiapine FUMARATE 200 MG TABLET PO SCH (22:03)
[2023-07-27] MEDS: IBUPROFEN 600 MG TABLET (FP) PO PRN (22:21)
[2023-07-27] MEDS: GABAPENTIN 300 MG CAPSULE PO ONE (23:13)
[2023-07-28] MEDS ORDERED: chlordiazePOXIDE HCL 10 MG CAPSULE PO PRN
[2023-07-28] MEDS ORDERED: chlordiazePOXIDE HCL 10 MG CAPSULE PO SCH (05:00)
[2023-07-28] MEDS: LORazepam 0.5 MG TABLET PO SCH (05:44)
[2023-07-28] MEDS: LORazepam 1 MG TABLET PO SCH (15:15)
[2023-07-28] MEDS: GABAPENTIN 400 MG CAPSULE PO SCH (22:23)
[2023-07-29] MEDS ORDERED: chlordiazePOXIDE HCL 10 MG CAPSULE PO SCH (05:00)
[2023-07-29] MEDS: LORazepam 0.5 MG TABLET PO ONE (05:24)
[2023-07-29] MEDS: hydrOXYzine PAMOATE 25 MG CAPSULE (FP) PO PRN (12:51)
[2023-07-30] MEDS ORDERED: chlordiazePOXIDE HCL 10 MG CAPSULE PO ONE (05:00)
[2023-07-30 06:19] VITALS: RESP 16
[2023-07-30 09:16] VITALS: BP 111/64; PULSE 68; TEMP 98.3
== END 2023-07-30 09:15 | disposition home or self-care (01) | DRG 775 ==
LOC: YASAS 08:06 → Y3N 10:22
PROVIDERS: ADMIT Allergy & Immunology; ATTEND Surgery
PROC: HZ2ZZZZ Detoxification Services for Substance Abuse Treatment (ICD-10-PCS; principal; 2023-07-25)
DX: F10.20 Alcohol dependence, uncomplicated (principal); F12.20 Cannabis dependence, uncomplicated; F17.210 Nicotine dependence, cigarettes, uncomplicated; F10.280 Alcohol dependence with alcohol-induced anxiety disorder; F10.282 Alcohol dependence with alcohol-induced sleep disorder; F10.24 Alcohol dependence with alcohol-induced mood disorder; F31.9 Bipolar disorder, unspecified; I10 Essential (primary) hypertension; K21.9 Gastro-esophageal reflux disease without esophagitis; E78.5 Hyperlipidemia, unspecified; E11.42 Type 2 diabetes mellitus with diabetic polyneuropathy; Z79.84 Long term (current) use of oral hypoglycemic drugs
CPT/HCPCS: 0241U-QW; 36415; 80053; 80305; 81025; 82962; 85027; 86780; 93005; 93010; Q0162

== ENCOUNTER 2024-03-22 08:14 | Inpatient (IN) | payer OTHER ==
[2024-03-22 09:01] VITALS: BMI 24.0
[2024-03-22] MEDS ORDERED: POLYETHYLENE GLYCOL (HEALTHYLAX) 3350 17 GM PACKET PO PRN (09:44)
[2024-03-22] MEDS ORDERED: BENZOCAINE/MENTHOL (CHLORASEPTIC ) LOZENGE MM PRN (09:44)
[2024-03-22] MEDS ORDERED: DICYCLOMINE HCL 10 MG CAPSULE PO PRN (09:44)
[2024-03-22] MEDS ORDERED: ACETAMINOPHEN 325 MG TABLET (FP) PO PRN (09:44)
[2024-03-22] MEDS ORDERED: IBUPROFEN 600 MG TABLET (FP) PO PRN (09:44)
[2024-03-22] MEDS ORDERED: BENZONATATE 200 MG CAPSULE PO PRN (09:44)
[2024-03-22] MEDS ORDERED: MAG HYDROX/AL HYDROX/SIMETH 30 ML UNIT-DOSE CUP PO PRN (09:44)
[2024-03-22] MEDS ORDERED: BISMUTH SUBSALICYLATE 262 MG/15 ML BTL PO PRN (09:44)
[2024-03-22] MEDS ORDERED: MAGNESIUM HYDROX 2400MG/30ML ORAL SUSPENSION 30 ML CUP PO PRN (09:44)
[2024-03-22] MEDS ORDERED: guaiFENesin 600 MG TABLET.ER (FP) PO PRN (09:44)
[2024-03-22] MEDS ORDERED: NALOXONE (NARCAN) HCL 4 MG/0.1 ML SPRAY NS PRN (09:44)
[2024-03-22] MEDS ORDERED: NICOTINE POLACRILEX 2 MG GUM BUC PRN (09:44)
[2024-03-22] MEDS: NICOTINE 14 MG/24 HOURS TOPICAL PATCH TD SCH (11:02)
[2024-03-22] MEDS ORDERED: PRENATAL VITAMINS W/ FOLIC ACID TABLET (FP) PO ONE (11:04)
[2024-03-22] MEDS ORDERED: chlordiazePOXIDE HCL 25 MG CAPSULE ONE (11:04)
[2024-03-22] MEDS: PRENATAL VITAMINS W/ FOLIC ACID TABLET (FP) PO SCH (11:08)
[2024-03-22] MEDS: chlordiazePOXIDE HCL 25 MG CAPSULE PO SCH (11:08)
[2024-03-22] MEDS ORDERED: ALBUTEROL SO4 HFA INHALER IH PRN (11:14)
[2024-03-22] MEDS: hydrOXYzine PAMOATE 25 MG CAPSULE (FP) PO PRN (11:46)
[2024-03-22] MEDS: METHOCARBAMOL 500 MG TABLET PO PRN (11:46)
[2024-03-22] MEDS: FAMOTIDINE 20 MG TABLET PO SCH (11:47)
[2024-03-22] MEDS: GABAPENTIN 300 MG CAPSULE PO SCH (13:11)
[2024-03-22] MEDS: chlordiazePOXIDE HCL 25 MG CAPSULE PO PRN (14:15)
[2024-03-22] MEDS: ONDANSETRON *ODT* 4 MG TABLET SL PRN (14:16)
[2024-03-22] MEDS: metFORMIN HCL 500 MG TABLET (FP) PO SCH (17:27)
[2024-03-22] MEDS ORDERED: MELATONIN 5 MG TABLETS PO SCH (22:00)
[2024-03-22] MEDS: THIAMINE 100 MG TABLET PO SCH (22:29)
[2024-03-22] MEDS: ATORVASTATIN CA 10 MG TABLET (FP) PO SCH (22:30)
[2024-03-22] MEDS: QUEtiapine FUMARATE 200 MG TABLET PO SCH (22:31)
[2024-03-23] MEDS: ASPIRIN 81 MG CHEWABLE TABLETS PO SCH (10:11)
[2024-03-23 11:16] LABS: HEMATOCRIT 40.3 % (32.4-45.2); HEMOGLOBIN 13.7 GM/dL (10.7-15.3); MEAN CELL VOLUME 108.9 fl (80-96); MEAN PLT VOLUME 9.5 fl (7.5-11.1); PLATELET COUNT 281 10^3/uL (134-434); RDW 17.5 % (11.6-15.6); WHITE BLOOD COUNT 7.1 K/mm3 (4.0-10.0)
[2024-03-23 11:46] LABS: POTASSIUM 3.9 mmol/L (3.5-5.1)
[2024-03-23 11:56] LABS: CALCIUM 9.3 mg/dL (8.5-10.1)
[2024-03-23 11:57] LABS: ALBUMIN 3.6 g/dl (3.4-5.0); BLOOD UREA NITROGEN 5.7 mg/dL (7-18)
[2024-03-23 12:00] LABS: CREATININE 0.7 mg/dL (0.55-1.3)
[2024-03-23 12:02] LABS: BILIRUBIN,TOTAL 0.4 mg/dL (0.2-1); TOT PROT 8.2 g/dl (6.4-8.2)
[2024-03-23] MEDS: LACTULOSE 20 GM/30 ML UDC (FOR ORAL USE ONLY) PO SCH (17:09)
[2024-03-24] MEDS: LOPERAMIDE HCL 2 MG CAPSULE PO PRN (02:05)
[2024-03-24] MEDS: chlordiazePOXIDE HCL 25 MG CAPSULE PO SCH (05:28)
[2024-03-24] MEDS: NALTREXONE HCL 50 MG TABLET PO SCH (15:05)
[2024-03-25] MEDS: IBUPROFEN 400 MG TABLET (FP) PO PRN (02:50)
[2024-03-25] MEDS: chlordiazePOXIDE HCL 10 MG CAPSULE PO SCH (05:33)
[2024-03-25] MEDS: FAMOTIDINE 20 MG TABLET PO ONE (13:21)
[2024-03-25] MEDS: chlordiazePOXIDE HCL 10 MG CAPSULE PO PRN (13:22)
[2024-03-25] MEDS ORDERED: MELATONIN 5 MG TABLETS PO ONE (22:00)
[2024-03-25] MEDS ORDERED: MELATONIN 5 MG TABLETS PO SCH (22:00)
[2024-03-25] MEDS: SUVOREXANT 10 MG TABLET PO PRN (22:53)
[2024-03-26] MEDS: NALOXONE (NYS OPIOID OVERDOSE PROGRAM) 4 MG/0.1 ML SPRAY NS SCH (02:14)
[2024-03-26] MEDS: chlordiazePOXIDE HCL 10 MG CAPSULE PO SCH (05:30)
[2024-03-26 09:03] VITALS: BP 126/87; PULSE 90; RESP 16; TEMP 96.8
[2024-03-26] MEDS: NALOXONE (NYS OPIOID OVERDOSE PROGRAM) 4 MG/0.1 ML SPRAY NS PRN (09:03)
[2024-03-27] MEDS ORDERED: chlordiazePOXIDE HCL 10 MG CAPSULE PO ONE (05:00)
== END 2024-03-26 09:12 | disposition home or self-care (01) | DRG 775 ==
LOC: YASAS 08:14 → Y6N 11:04
PROVIDERS: ADMIT Allergy & Immunology; ATTEND Surgery
PROC: HZ2ZZZZ Detoxification Services for Substance Abuse Treatment (ICD-10-PCS; principal; 2024-03-22)
DX: F10.230 Alcohol dependence with withdrawal, uncomplicated (principal); F12.20 Cannabis dependence, uncomplicated; F17.210 Nicotine dependence, cigarettes, uncomplicated; F31.9 Bipolar disorder, unspecified; F41.9 Anxiety disorder, unspecified; G47.00 Insomnia, unspecified; I25.10 Atherosclerotic heart disease of native coronary artery without angina pectoris; I11.0 Hypertensive heart disease with heart failure; E11.42 Type 2 diabetes mellitus with diabetic polyneuropathy; Z79.84 Long term (current) use of oral hypoglycemic drugs; J45.909 Unspecified asthma, uncomplicated; K70.30 Alcoholic cirrhosis of liver without ascites; K21.9 Gastro-esophageal reflux disease without esophagitis; R79.89 Other specified abnormal findings of blood chemistry
CPT/HCPCS: 36415; 80053; 80305; 80307; 81025; 82140; 82962; 85027; 86780; Q0162